=== PATIENT | female | born 1950 | race Caucasian/White ===

== ENCOUNTER 2017-04-20 17:48 | Emergency (ER) | payer BC ==
[2017-04-20 18:06] VITALS: BP 155/86
--- NOTE | 2017-04-20 18:12 | UC ---
Respiratory Complaint HPI - HPI Summary HPI Summary: Pt presents with cough. She tells me that about 2 weeks ago she developed a dry cough. Over the last 4-5 days her cough has become productive and she has had sinus congestion/pain/pressure. She also reports trouble "getting a deep breath ". Has not tried anything OTC. Denies fever, chills, SOB, chest pain, abdominal pain, N/V/D/C - History of Current Complaint Chief Complaint: UCGeneralIllness Stated Complaint: COLD/COUGH Time Seen by Provider: 04/20/17 18:11 Hx Obtained From: Patient Onset/Duration: Gradual Onset Severity Initially: Mild Severity Currently: Moderate Character: Cough: Productive - Allergies/Home Medications Allergies/Adverse Reactions: Allergies Allergy/AdvReac Type Severity Reaction Status Date / Time Fentanyl AdvReac Intermediate GI upset, Verified 04/20/17 17:59 groggy PMH/Surg Hx/FS Hx/Imm Hx Previously Healthy: Yes - Surgical History Surgical History: Yes Surgery Procedure, Year, and Place: carpal tunnel BILATERAL WRISTS. dental implants. cataract removal x2 - Family History Known Family History: Positive: Unknown - Social History Occupation: Employed Full-time Lives: With Family Alcohol Use: None Substance Use Type: None Smoking Status (MU): Never Smoked Tobacco Review of Systems Constitutional: Negative Skin: Negative Eyes: Negative ENT: Nasal Discharge, Sinus Congestion, Sinus Pain/Tenderness Respiratory: Cough Cardiovascular: Negative Gastrointestinal: Negative Neurological: Negative Psychological: Negative All Other Systems Reviewed And Are Negative: Yes Physical Exam Triage Information Reviewed: Yes Appearance: Well-Appearing, Well-Nourished Vital Signs: Initial Vital Signs Temp 98.8 F 04/20/17 18:00 Pulse 90 04/20/17 18:00 Resp 20 04/20/17 18:00 BP 155/86 04/20/17 18:00 Pulse Ox 98 04/20/17 18:00 Vital Signs Reviewed: Yes Eyes: Positive: Conjunctiva Clear. Negative: Conjunctiva Inflamed, Discharge ENT: Positive: Hearing grossly normal, Pharynx normal, Nasal congestion, TMs normal, Sinus tenderness, Uvula midline. Negative: Pharyngeal erythema, TM bulging, TM dull, TM red, Tonsillar swelling, Tonsillar exudate, Muffled voice, Hoarse voice Neck: Positive: Supple, Nontender, No Lymphadenopathy Respiratory: Positive: Chest non-tender, Lungs clear, No respiratory distress, No accessory muscle use, Wheezing - Throughout. Negative: Crackles Cardiovascular: Positive: RRR, No Murmur, Pulses Normal Neurological: Positive: Alert Psychological: Positive: Age Appropriate Behavior Skin: Negative: rashes UC Diagnostic Evaluation - Laboratory O2 Sat by Pulse Oximetry: 98 Respiratory Course/Dx - Course Course Of Treatment: CXR: IMPRESSION: HYPERINFLATION, CONSISTENT WITH COPD. NO ACTIVE CARDIOPULMONARY DISEASE. Albuterol for cough/COPD exacerbation. Augmentin for sinusitis - Differential Dx/Diagnosis Differential Diagnosis/HQI/PQRI: Bronchitis, Exacerbation Of COPD, Sinusitis Provider Diagnoses: COPD exacerbation. Sinusitis Discharge - Discharge Plan Condition: Stable Disposition: HOME Prescriptions: Amoxicillin/Clavulanate TAB* [Augmentin TAB 875*] 875 mg PO BID #20 tab Patient Education Materials: Acute Bronchitis (ED), Sinusitis (ED) Referrals: Niraj Leija MD [Primary Care Provider] - Additional Instructions: If you develop a fever, SOB, chest pain, new or worsening symptoms - please call your PCP or go to the ED. Your blood pressure was high at todays visit. Please see your primary provider within 4 weeks for recheck and re-evaluation.
[2017-04-20] MEDS ORDERED: Albuterol/Ipratropium NEB.SOL* Albuterol 2.5 MG/Ipratropium 0.5 MG 3 ML INH ONE (18:16)
--- NOTE | 2017-04-20 18:49 | RAD ---
HISTORY: Cough, wheezing COMPARISONS: August 15, 2013 VIEWS: 4: Frontal dual-energy and lateral views of the chest. FINDINGS: CARDIOMEDIASTINAL SILHOUETTE: The cardiomediastinal silhouette is normal. ROSEY: The rosey are normal. PLEURA: The costophrenic angles are sharp. No pleural abnormalities are noted. LUNG PARENCHYMA: There is hyperinflation with flattening of the diaphragm and expansion of the AP diameter of the chest. ABDOMEN: The upper abdomen is clear. There is no subphrenic gas. BONES AND SOFT TISSUES: Degenerative changes are noted along the spine. OTHER: None. IMPRESSION: HYPERINFLATION, CONSISTENT WITH COPD. NO ACTIVE CARDIOPULMONARY DISEASE.
[2017-04-20] MEDS ORDERED: Albuterol HFA INHALER* 8 gm MDI INH ONE (18:54)
[2017-04-20] MEDS ORDERED: Azithromycin TAB* 250 MG PO ONE (18:55)
[2017-04-20] MEDS ORDERED: Amoxicillin/Clavulanate TAB* 875 MG PO ONE (18:57)
== END 2017-04-20 19:20 | disposition home or self-care (01) ==
LOC: UCEAST 17:48
DX: J44.1 Chronic obstructive pulmonary disease with (acute) exacerbation (principal); J32.9 Chronic sinusitis, unspecified
CPT/HCPCS: 71020; 99213; A9270-GY; G0463

== ENCOUNTER 2018-05-12 07:21 | Inpatient (IN) | payer BC ==
--- NOTE | 2018-05-08 13:44 | HP ---
AMENDED REPORT NOW INCLUDES DESIGNATED COSIGNER HISTORY AND PHYSICAL: DATE OF ADMISSION/SURGERY: 05/12/18 DATE OF OFFICE VISIT: 05/08/18 SURGEON: Maria Ines Ro MD * (DICTATED BY CORNELIA CRANE) PROCEDURE: Left total knee arthroplasty. CHIEF COMPLAINT: Left knee pain. HISTORY OF PRESENT ILLNESS: Ms. Diez is a 68-year-old female with end- stage osteoarthritis of the left knee. She has failed conservative treatment and elected to proceed with a left total knee arthroplasty. PAST MEDICAL HISTORY: Hypertension, TIA, and sleep apnea. PAST SURGICAL HISTORY: Bilateral carpal tunnel release, cataract removal, and tooth implants. CURRENT MEDICATIONS: Quinapril 10 mg daily. ALLERGIES: To FENTANYL. FAMILY HISTORY: Coronary artery disease, diabetes, and aneurysm. SOCIAL HISTORY: She is a 68-year-old female. She lives with her and mother. She does not smoke or use drugs or alcohol. REVIEW OF SYSTEMS: A complete 14-point review of systems was reviewed with the patient. It was all negative or noncontributory. She denies history of DVT, PE , hepatitis, HIV, or anesthesia problems. PHYSICAL EXAMINATION GENERAL: She is well developed, well nourished, in no acute distress. VITAL SIGNS: She stands 66 inches tall, weighs 207 pounds. Her blood pressure is 124/78 and her heart rate is 60. HEENT: Normocephalic, atraumatic. NECK: Supple. No palpable lymph nodes. PULMONARY: The lungs are clear to auscultation bilaterally. CARDIO: Regular rate and rhythm. Strong S1, S2. ABDOMEN: Soft, nontender, nondistended. MUSCULOSKELETAL: Left lower extremity: The skin is intact. There are no open wounds or abrasions. There is a moderate joint effusion. She has some tenderness over the medial and lateral joint line. Range of motion is 10 to 120 degrees of flexion. She has a 2+ dorsalis pedis pulse, intact sensation and her lower extremity muscle group strengths are intact at 5/5. NEUROLOGICAL: She is alert and oriented x3. ASSESSMENT AND PLAN: Ms. Diez is a 68-year-old female with end-stage osteoarthritis of the left knee. She has failed conservative treatment and elected to proceed with a left total knee arthroplasty. The surgery is scheduled for 05/12/[address] Ro discussed the risks and benefits of the surgery at today's visit and all of her questions were answered. She will follow up with Dr. Ro 2 weeks after the surgery. CORNELIA CRANE [id number]/[facility] #: [id number] EVY
[~2018-05-12 07:21] MED LIST: Acetaminophen IV 1GM/100ML * 1,000 MG/100 ML VIAL IVPB ONE; Buffered Lidocaine 0.9% SYRIN* 5 ML/SYR SYRINGE INTRADERM ONE; Dexamethasone IV* 4 MG/ML 1 ML (4 MG) IV SLOW PU ONE; Famotidine IV* 10 MG/ML 2 ML (20 mg) IV ONE; Gabapentin CAP(*) 300 MG PO ONE; Lactated Ringers 1000 ML Bag* 1,000 ML IV SCH; Tranexamic Acid 1,000 MG in NS 0.9% 50 ML* (outpatient use) IV SCH; celeCOXIB CAP* 200 MG PO ONE
--- OUTSIDE RECORDS SUMMARY | 2018-05-12 07:25 | XMS REPORT | Continuity of Care Document ---
:1950 External Reference #:[id number] Author Name TrentToan howell Care Team Providers Name Role Phone Niraj Leija MD Primary Care Physician Unavailable Payers Type Date Identification Numbers Payment Provider Subscriber Effective: Policy Number: [id number] [employer] Samantha Diez 2012 PayID: [id number] [facility] [address] [place] [address] Advance Directives Description No Information Available Problems Date Description Provider Status Onset: 03/04/2017 Obstructive sleep apnea syndrome Sherrell Beavers DNP, RN, Active OPHTHALMIC TECH-BC Onset: 03/04/2017 Inadequate sleep hygiene Sherrell Beavers DNP, RN, Active OPHTHALMIC TECH-BC Onset: 11/14/2017 Localized, primary osteoarthritis Maria Ines Ro M.D. Active Family History Date Family Member(s) Problem(s) Comments General Diabetes General Heart Disease General Hypertension Father Coronary Artery Disease (CAD) Father Hypercholesterolemia Mother [place] age 42yrs Mother Coronary Artery Disease (CAD) Social History Type Date Description Comments Sex Unknown Marital Status Lives With Lives With Mother Occupation Retired Tobacco Use Start: Unknown Never Smoked Cigarettes Smoking Status Reviewed: 05/08/18 Never Smoked Cigarettes ETOH Use Denies alcohol use Tobacco Use Start: Unknown Patient has never smoked Recreational Drug Use Denies Drug Use Exercise Type/Frequency Exercises regularly Exercise Type/Frequency Walks 3 times a week Exercise Type/Frequency Does aerobics 5 times a week Allergies, Adverse Reactions, Alerts Date Description Reaction Status Severity Comments 11/14/2017 Fentanyl Active 12/06/2016 NKDA Inactive Medications Medication Date Status Form Strength Qnty SIG Indications Ordering Provider Quinapril HCL Active Tablets 10mg 1 by mouth Unknown 00 every day at bedtime Vitamin C Hx Chewtabs 125mg daily Unknown Adult Gummies 11/14/19 18 Vitamin B Hx Tablets 1 by mouth Unknown Complex 00 - every day 11/14/19 18 Vitamin D Hx daily Unknown 11/14/19 18 Fish Oil Hx daily Unknown 11/14/19 18 Curcumin 95 Hx prn Unknown 02/13/20 18 Turmeric Hx Unknown 05/07/19 19 Medications Administered in Office Medication Date Status Form Strength Qnty SIG Indications Ordering Provider Depomedrol Administered Injection Maria Ines 40MG 018 Chne Ro Depomedrol Administered Injection Maria Ines 40MG 018 Chen Ro Depomedrol Administered Injection Maria Ines 40MG 018 Chen Ro Immunizations CPT Code Status Date Vaccine Lot # [id number] Given 02/12/2016 Influenza Virus 3Yrs & Over Vital Signs Date Vital Result Comment 05/08/2018 11:50am Height 66 inches 5'6" Weight 207.00 lb Heart Rate 60 /min BP Systolic 124 mmHg BP Diastolic 78 mmHg Respiratory Rate 24 /min Body Temperature 97.6 F Pain Level 6 BMI (Body Mass Index) 33.4 kg/m2 02/13/2018 1:20pm Height 66 inches 5'6" Weight 202.00 lb BP Systolic 136 mmHg BP Diastolic 84 mmHg Body Temperature 97.8 F BMI (Body Mass Index) 32.6 kg/m2 12/05/2017 1:52pm Height 66 inches 5'6" Weight 204.00 lb BP Systolic 142 mmHg BP Diastolic 80 mmHg Body Temperature 98.0 F Pain Level 5 BMI (Body Mass Index) 32.9 kg/m2 11/24/2017 11:08am Height 66 inches 5'6" Weight 204.00 lb Heart Rate 76 /min BP Systolic Sitting 116 mmHg BP Diastolic Sitting 82 mmHg Respiratory Rate 14 /min O2 % BldC Oximetry 96 % BMI (Body Mass Index) 32.9 kg/m2 11/14/2017 1:31pm Height 66 inches 5'6" Weight 205.00 lb Heart Rate 92 /min BP Systolic 118 mmHg BP Diastolic 78 mmHg BMI (Body Mass Index) 33.1 kg/m2 03/04/2017 2:05pm Height 66 inches 5'6" Weight 208.50 lb with shoes Heart Rate 92 /min BP Systolic Sitting 138 mmHg Lue large cuff BP Diastolic Sitting 78 mmHg Lue large cuff Respiratory Rate 16 /min O2 % BldC Oximetry 97 % On Ra BMI (Body Mass Index) 33.6 kg/m2 12/06/2016 11:52am Height 66 inches 5'6" Weight 204.00 lb Heart Rate 88 /min BP Systolic Sitting 142 mmHg BP Diastolic Sitting 86 mmHg Respiratory Rate 20 /min O2 % BldC Oximetry 97 % room air BMI (Body Mass Index) 32.9 kg/m2 Neck Circumference in inches 14.25 Results Test Date Facility Test Result H/L Range Note Urinalysis Profile 04/30/2018 [facility] Urine Color Straw [facility] [place] [address] [place] [address] [phone] Urine Appearance Clear Urine Specific [place] 1.009 Low 1.010-1.030 Urine pH 7.0 N 5-9 Urine Urobilinogen Negative Negative Urine Ketones Negative Negative Urine Protein Negative Negative Urine Leukocytes Negative Negative Urine Blood Negative Negative Urine Nitrite Negative Negative Urine Bilirubin Negative Negative Urine Glucose Negative Negative Type & Screen 04/30/2018 [facility] Patient Blood Type O Positive [facility] [place] [address] [place] [address] [place] [address] [phone] Antibody Screen NEGATIVE Urine Culture And 04/30/2018 [facility] Urine Culture SEE RESULT [address] [place] [address] [phone] 1 SEE RESULT BELOW Name: SAMANTHA DIEZ : [address]: Maria Ines Ro MD Acct: [id number] Unit: [id number] AGE: 68 Location: PAT Re04/30/18 SEX: F Status: REG REF SPEC: [id number] ARSLAN: 04/30/18-1440 [facility] DR: Maria Ines Ro MD REQ: [id number] RECD: 04/30/18 STATUS: COMP _ SOURCE: URINE SPDESC: ORDERED: Urine Culture QUERIES: Urine Source: Clean Catch Procedure Result Reported Site Urine Culture Final 05/02/18- 0803 ML No Growth (<1,000 CFU/mL) * ML - Main Lab . END OF REPORT DEPARTMENT OF PATHOLOGY, [address] [place] [address] Emile Aguilar M.D. Director [facility] # [id number] Procedures Date Code Description Status 02/13/2018 Inject/Drain Joint/Bursa Major W/O US Completed 11/14/2017 Inject/Drain Joint/Bursa Major W/O US Completed 12/11/2016 05353 Sleep Study Unattended,HRT Rate,Oxygen Sat,Resp Completed Effort/Airflow 09/19/2011 80833 Rad Exam; Knee Comp Completed 09/19/2011 67990 Xray Knee 3 Views Completed Encounters Type Date Location Provider Dx Diagnosis Office Visit 02/13/2018 Orthopedic Maria Ines Ro, M25.561 Pain in right 1:15p [facility] M.D. knee M25.562 Pain in left knee M25.461 Effusion, right knee M25.462 Effusion, left knee M17.0 Bilateral primary osteoarthritis of knee Office Visit 12/05/2017 1:45p [facility] Services Maria Ines Ro, M25.561 Pain in right [facility] M.D. knee M25.562 Pain in left knee M25.461 Effusion, right knee M25.462 Effusion, left knee M17.0 Bilateral primary osteoarthritis of knee Office Visit 11/24/2017 Pulmonology And Sherrell G47.33 Obstructive sleep 11:15a [facility] Beavers RN, apnea (adult) [facility] OLIVERIO-BC (pediatric) Office Visit 11/14/2017 Orthopedic Maria Ines Ro, M25.561 Pain in right 1:30p [facility] M.D. knee [facility] M25.562 Pain in left knee M25.461 Effusion, right knee M25.462 Effusion, left knee M17.0 Bilateral primary osteoarthritis of knee Office Visit 03/04/2017 Pul[facility] And Sherrell G47.33 Obstructive sleep 2:00p [facility] Beavers RN, apnea (adult) [facility] OLIVERIO-BC (pediatric) Z72.821 Inadequate sleep hygiene R40.0 Somnolence Office Visit 12/06/2016 11:30a [facility] Sleep Lexis Mahmood, R06.83 Snoring [facility] R06.81 Apnea, not elsewhere classified R40.0 Somnolence R25.2 Cramp and spasm R51 Headache R12 Heartburn R41.840 Attention and concentration deficit E66.09 Other obesity due to excess calories Office Visit 08/16/2013 4:09p [facility] Graciela 401.9 Hypertension Assoc,pc Rooth, DO [facility] 784.0 Headache 780.4 Dizziness & Giddiness 530.81 Esophageal Reflux Office Visit 09/19/2011 2:30p Orthopedic Nacho Alcantara, 715.96 Osteoarthrosis [facility] Localized Lower Leg Plan of Treatment Future Appointment(s):05/25/2018 1:30 pm - Maria Ines Ro M.D. at [facility]05/12/2018 1:30 pm - CORNELIA Sandoval at [facility]05/12/2018 1:30 pm - HAKEEM Gomez at [facility]05/12/2018 1:30 pm - Maria Ines Ro M.D. at [facility]11/24/2018 1:30 pm - Sherrell Beavers DNP, RN, OPHTHALMIC TECH-BC at [facility]
--- OUTSIDE RECORDS SUMMARY | 2018-05-12 07:26 | XMS REPORT | Continuity of Care Document ---
:1950 External Reference #:[id number] Author Name Niraj Leija MD Address [address] [place] [address] Care Team Providers Name Role Phone Niraj Leija MD FACP Primary Care Physician Unavailable Payers Type Date Identification Numbers Payment Provider Subscriber Effective: Policy Number: [id number] [facility] CN Samantha Hidalgoirma 2012 Group Number: [id number] [address] [address] [facility] [place] [address] PayID: [id number] Expires: 2009 PayID: [id number] [place] Samantha Hidalgoirma [address] [place] [address] Advance Directives Description No Information Available Problems Date Description Provider Status Onset: 02/13/2009 Essential hypertension Niraj Leija MD Active Onset: 02/13/2009 Obesity Niraj Leija MD Active Onset: 02/13/2009 Localized, primary osteoarthritis Niraj Leija MD Active Onset: 03/01/2009 Mixed hyperlipidemia Niraj Leija MD Active Onset: 02/13/2015 Degenerative joint disease involving Niraj Leija MD Active multiple joints Onset: 02/13/2015 Vitamin D deficiency Niraj Leija MD Active Family History Date Family Member(s) Problem(s) Comments General Congestive Heart Failure (CHF) GM at 62 and uncle at 70 General Diabetes Mellitus I Sister and nephew at age 7 Onset: (2011) Father SC S/P stent (age 85 Years) Father Hypercholesterolemia Onset: Father Varicose veins (02/2009) (age 81 Years) Onset: (age 40 Mother Heart Disease Smoker in past, CABG Years) at 40 Mother Hypertension Number of Siblings Siblings: 11 10 alive 8 brothers and 2 sisters. Onset: (2004) First Brother Peripheral Vascular Disease S/P surgery, smoker (age 40 Years) (PVD) for life First Brother Ck : (age Second Brother due to Aneurysm Brain 21 Years) Second Brother Frances Onset: (2012) Third Brother Carotid artery aneurysm Incidental (age 48 Years) diagnosis, asymptomatic. 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 Allergies, Adverse Reactions, Alerts Date Description Reaction Status Severity Comments 02/13/2009 NKDA Active 01/09/2009 Fentanyl Nausea and Vomiting, [place] foggy Inactive Mild after dental surgery Medications Medication Date Status Form Strength Qnty SIG Indications Ordering Provider Quinapril 04/03 Active Tablets 10mg 90tab Take 1 Tablet By I10 Healy HCL s Mouth Every Day A Liss, For High Blood Pressure Cpap 12/11 Active G47.33 Ela, MD David Aspirin 08/[address] 81mg take 1 tablet by 435.9 Healy mouth daily to A [place], prevent blood clotting Vitamin D3 10/03 Active Capsules 2000Unit 1 po qd E55.9 He[place] Matias Leija MD Shingrix 07/03 Hx Suspension 50mcg 1unit one Z00.01 Healy Rec s intramuscular A [place], - dose now and 04/13 repeat 2nd dose /2017 after 2-6 months. Prevnar 13 07/03 Hx Suspension 1unit administer half Z00.01 Healy s a milliliters Matias Leija - intramuscularly 04/13 one time for inactivated vaccination to prevent pneumococcal infection Jublia 01/03 Hx Solution 10% Apply 1 110.1 application - topically to 02/12 affected area daily for fungal nail disease Omeprazole 08/[address] 20mg 30tab 1 by mouth every 530.81 Addy D /2014 s day as needed [place], - ANESTHESIA TECHNICIAN-C 02/12 789.06 Magnesium 08/10/2014 - Hx Tablets 300mg otc: 1 tab 530.81 Addy D Aspartate 02/12/2015 orally daily [place], for reflux ANESTHESIA TECHNICIAN-C prevention; decrease to every other day for diarrhea Amoxicillin/Po 02/18/2013 - Hx Tablets 875-125m 20t 1 take by 461.0 Healy A tassium 02/28/2013 g abs mouth tablet 2 MD Liss Clavulanate times per day for sinus irritation and congestion Clindamycin 02/06/2013 - Hx Capsules 300mg Take 1 capsule 461.0 Unknown HCL 02/13/2013 by mouth 4 times per day Doxycycline 12/31/2012 - Hx Caps DR 100mg 28c take 1 capsule 719.49 Healy A Hyclate 01/14/2013 Part aps by mouth 2 MD Liss times per day for 14 days Doxycycline 12/17/2012 - Hx Capsules 100mg 28c take 1 capsule 780.79 Healy A Hyclate 01/01/2013 aps by mouth 2 MD Liss times per day for 14 days 719.49 Omeprazole 11/11/2012 - Hx Tablets DR 20mg 1 by mouth 530.81 Healy A 12/11/2012 every day as MD Liss needed 789.06 Pravastatin 08/18/2012 - Hx Tablets 10mg 30tabs take 1 tablet by 272.2 Healy A Sodium 11/11/2012 mouth daily for MD Liss hyperlipidemia Omeprazole 08/06/2012 - Hx Capsules 20mg 30caps take 1 capsule by 530.81 Healy A 11/11/2012 DR mouth daily for MD Liss gastroesophageal reflux disease 789.06 Tums 08/06/2012 - Hx Chewtabs 500mg 2 chew and 530.81 Healy A 02/12/2015 swallow by mouth MD Liss tablets as needed 4 times a day Zostavax 08/06/2012 - Hx Solution [id number] 1u 1 injection Healy A 02/12/2015 Rec t/0.65M ni MD Liss L ts Accupril 07/24/2012 - Hx Tablets 10mg 90 Take 1 Tablet By I10 Healy A 04/03/2018 ta Mouth Every Day MD Liss bs For High Blood Pressure Melatonin 05/05/2012 - Hx Capsules 5mg 1 capsule by 780.52 Unknown 08/06/2012 mouth daily at bedtime with food as needed for trouble sleeping Omeprazole 03/09/2012 - Hx Capsules DR 20mg 30 take 1 capsule 786.2 Healy A 05/03/2012 ca by mouth 1/2 MD Liss ps hour before dinner Benadryl 01/04/2012 - Hx Capsules 25mg 1 by mouth every 780.52 Unknown 08/06/2012 night as needed for insomnia Trazodone HCL 12/23/2011 - Hx Tablets 50mg 30 1 tab by mouth 780.52 Healy A 12/23/2011 ta every night MD Liss bs Ecotrin Low 08/20/2010 - Hx Tablets DR 81mg 1 po qd 435.9 Healy A Strength 08/06/2012 MD Liss Zolpidem 08/20/2010 - Hx Tablets 5mg 15 1 po qhs prn 780.52 Healy A Tartrate 09/04/2010 ta MD Liss bs Pravastatin 09/01/2009 - Hx Tablets 40mg 30 take 1 tablet by 272.2 Healy A Sodium 08/05/2012 ta mouth daily for MD Liss bs hyperlipidemia Pravastatin 06/07/2009 - Hx Tablets 20mg 30 1 po qd qhs 272.2 Healy A Sodium 09/01/2009 ta MD Liss bs Acetaminophen 04/12/2009 - Hx Capsules 500mg 1-2 po tid prn 719.46 Healy A 02/12/2015 MD Liss 715.16 719.49 Quinapril HCL 03/13/2009 - Hx Tablets 10mg 30.0tabs Take 1 401.9 Healy A 07/24/2012 tablet by MD Liss mouth daily for high blood pressure Aspirin 03/01/2009 - Hx Tablets 325mg 1 po qd 435.9 Healy A 08/20/2010 MD Liss Vitamin D 02/24/2009 - Hx Tablets 1000Uni 1 po qd 268.9 Healy A 10/03/2010 t MD Liss Metoprolol 05/05/2006 - Hx Tablets ER 50mg 30tabs 1 po qd 401.9 Healy A Succinate ER 04/03/2009 24HR MD Liss Immunizations CPT Code Status Date Vaccine Lot # [id number] Given 02/27/2018 Influenza Virus Vaccine, Quadrivalent ([id number]), Derived From Cell 57381 Given 02/25/2017 Influenza Vaccine Quadrivalent Preser/Antibiotic [place] Use 7[address] Given 02/03/2016 Influenza Virus Split 3 Yrs And Above For Intramuscular Use 81149 Given 02/01/2014 Influenza Virus Split 3 Yrs And Above For Intramuscular Use 89971 Given 01/26/2013 Influenza Virus Split 3 Yrs And Above For Intramuscular Use 64227 Given 12/23/2011 Pneumococcal Vaccine 2Yrs Or Older PNEUMO [id number] 22992 Given 04/19/2010 Tdap-Tetanus, Diphtheria Toxoids/Acellular TDAP [id number] Pertussis Vaccine 7+ 26619 Given 03/05/2010 Influenza Virus Split 3 Yrs And Above For Intramuscular Use 16396 Given 02/03/2008 Influenza Virus Split 3 Yrs And Above For Intramuscular Use 19864 Given 12/21/2007 Tetanus Preservative Free For Use In Individuals 7 Yrs Or Older 89517 Refused 02/13/2015 Zoster Shingles Vaccine For Subcutaneous Injection Vital Signs Date Vital Result Comment 04/13/2018 2:31pm Heart Rate 90 /min BP Systolic 130 mmHg BP Diastolic 75 mmHg BMI (Body Mass Index) 33.6 kg/m2 Weight 205.00 lb Height 65.5 inches 5'5.50" 01/06/2018 8:55am Heart Rate 70 /min BP Systolic 130 mmHg BP Diastolic 80 mmHg Weight 205.00 lb 01/06/2018 12:50pm Weight 205.00 lb 07/03/2017 10:10am Body Temperature 98.8 F O2 % BldC Oximetry 98 % Heart Rate 90 /min BP Systolic 130 mmHg BP Diastolic 78 mmHg BMI (Body Mass Index) 33.8 kg/m2 Weight 206.00 lb Height 65.50 inches 5'5.50" 10/24/2016 1:21pm Heart Rate 76 /min BP Systolic 135 mmHg BP Diastolic 80 mmHg Weight 204.00 lb 04/25/2016 1:10pm Body Temperature 98.7 F O2 % BldC Oximetry 96 % Heart Rate 89 /min BP Systolic 130 mmHg BP Diastolic 80 mmHg BMI (Body Mass Index) 34.5 kg/m2 Weight 209.00 lb Height 65.25 inches 5'5.25" 08/28/2015 10:10am O2 % BldC Oximetry 97 % Heart Rate 95 /min BP Systolic 125 mmHg BP Diastolic 80 mmHg Weight 206.00 lb 02/13/2015 10:16am Body Temperature 98.4 F O2 % BldC Oximetry 96 % Heart Rate 82 /min BP Systolic 130 mmHg BP Diastolic 80 mmHg BMI (Body Mass Index) 33.1 kg/m2 Weight 205.00 lb Height 66 inches 5'6" 08/10/2014 10:01am Body Temperature 98.4 F O2 % BldC Oximetry 98 % Heart Rate 88 /min BP Systolic 138 mmHg BP Diastolic 78 mmHg BMI (Body Mass Index) 32.3 kg/m2 Weight 200.00 lb in office, clothed Height 66 inches 5'6" 05/20/2014 9:22am Body Temperature 97.6 F O2 % BldC Oximetry 97 % Heart Rate 78 /min BP Systolic 132 mmHg BP Diastolic 73 mmHg 05/18/2014 11:03am Body Temperature 98.8 F Heart Rate 114 /min BP Systolic 139 mmHg BP Diastolic 82 mmHg 02/14/2014 11:36am Body Temperature 98.2 F O2 % BldC Oximetry 97 % Heart Rate 84 /min BP Systolic 122 mmHg BP Diastolic 80 mmHg BMI (Body Mass Index) 33.2 kg/m2 Weight 206.00 lb in office, clothed, with shoes Height 66 inches 5'6" 11/09/2013 11:04am Body Temperature 98.4 F O2 % BldC Oximetry 97 % Heart Rate 82 /min BP Systolic 125 mmHg BP Diastolic 80 mmHg BMI (Body Mass Index) 33.2 kg/m2 Weight 206.00 lb in office,no clothes, with shoes Height 66 inches 5'6" 08/16/2013 2:25pm Body Temperature 98.3 F O2 % BldC Oximetry 97 % Ra, AT Rest Heart Rate 104 /min BP Systolic 130 mmHg BP Diastolic 75 mmHg BMI (Body Mass Index) 33.1 kg/m2 Weight 205.00 lb with shoes Height 66 inches 5'6" 02/18/2013 2:06pm Body Temperature 98.4 F O2 % BldC Oximetry 96 % Ra, AT Rest Heart Rate 89 /min BMI (Body Mass Index) 32.3 kg/m2 Weight 200.00 lb with shoes Height 66 inches 5'6" 12/29/2012 2:24pm Body Temperature 98.8 F Heart Rate 78 /min BP Systolic 130 mmHg BP Diastolic 80 mmHg Height 66 inches 5'6" 12/17/2012 12:48pm Body Temperature 98.7 F Heart Rate 80 /min BP Systolic 145 mmHg BP Diastolic 80 mmHg Height 66 inches 5'6" 12/01/2012 1:17pm Body Temperature 98.7 F Height 66 inches 5'6" 11/11/2012 10:24am Heart Rate 64 /min BP Systolic 125 mmHg BP Diastolic 70 mmHg BMI (Body Mass Index) 33.4 kg/m2 Weight 207.00 lb Height 66 inches 5'6" 08/06/2012 9:32am Heart Rate 74 /min BP Systolic 138 mmHg BP Diastolic 85 mmHg BMI (Body Mass Index) 34.2 kg/m2 Weight 212.00 lb with shoes Height 66 inches 5'6" 03/09/2012 2:03pm Body Temperature 98.2 F Height 66 inches 5'6" 12/23/2011 9:13am Heart Rate 70 /min BP Systolic 122 mmHg BP Diastolic 75 mmHg BMI (Body Mass Index) 32.8 kg/m2 Weight 203.00 lb Height 66 inches 5'6" 08/20/2010 11:56am Heart Rate 76 /min BP Systolic 115 mmHg BP Diastolic 80 mmHg BMI (Body Mass Index) 31.6 kg/m2 Weight 196.00 lb Height 66 inches 5'6" 05/03/2010 2:40pm Body Temperature 97.8 F Heart Rate 68 /min BP Systolic 125 mmHg BP Diastolic 80 mmHg Height 66 inches 5'6" 04/11/2010 11:50am Body Temperature 98.2 F O2 % BldC Oximetry 97 % Ra, AT Rest Heart Rate 86 /min BP Systolic 135 mmHg BP Diastolic 90 mmHg BMI (Body Mass Index) 30.8 kg/m2 Weight 191.00 lb Height 66 inches 5'6" 08/22/2009 10:52am O2 % BldC Oximetry 98 % Heart Rate 90 /min BP Systolic 130 mmHg BP Diastolic 90 mmHg BMI (Body Mass Index) 32.0 kg/m2 Weight 198.00 lb Height 66 inches 5'6" 05/22/2009 10:03am Heart Rate 76 /min BP Systolic 110 mmHg BP Diastolic 80 mmHg BMI (Body Mass Index) 32.6 kg/m2 Weight 202.00 lb Height 66 inches 5'6" 04/12/2009 2:06pm Heart Rate 64 /min BP Systolic 122 mmHg BP Diastolic 78 mmHg 03/13/2009 4:42pm Heart Rate 72 /min BP Systolic 140 mmHg Supine and standing BP Diastolic 85 mmHg Supine and standing 03/01/2009 4:37pm Heart Rate 64 /min BP Systolic 160 mmHg Supine and standing BP Diastolic 85 mmHg Supine and standing BMI (Body Mass Index) 33.9 kg/m2 Weight 210.00 lb with shoes Height 66 inches 5'6" 02/13/2009 1:05pm Body Temperature 98.0 F O2 % BldC Oximetry 95 % Heart Rate 75 /min BP Systolic 135 mmHg BP Diastolic 90 mmHg BMI (Body Mass Index) 33.1 kg/m2 Weight 205.00 lb Height 66 inches 5'6" Results Test Date Facility Test Result H/L Range Note Order 04/13/2018 [facility] [place] [address] [phone] CBC No Diff 04/08/2018 [facility] White Blood 5.0 10^3/uL N 3.5-10.8 [place] [address] Count [phone] Red Blood Count 4.26 10^6/uL N 4.00-5.40 Hemoglobin 12.2 g/dL N 12.0-16.0 Hematocrit 37 % N 35-47 Mean Corpuscular Volume 86 fL N 80-97 Mean Corpuscular Hemoglobin 29 pg N 27-31 Mean Corpuscular HGB Conc 33 g/dL N 31-36 Red Cell Distribution Width 14 % N 10.5-15 Platelet Count 304 10^3/uL N 150-450 Mean Platelet Volume 7.2 fL Low 7.4-10.4 Basic Metabolic Panel 04/08/2018 [facility] Sodium 140 mmol/L N 135-145 [place], [place] [id number] [phone] Potassium 4.0 mmol/L N 3.5-5.0 Chloride 103 mmol/L N 101-111 Co2 Carbon Dioxide 30 mmol/L N 22-32 Anion Gap 7 mmol/L N 2-11 Glucose 84 mg/dL N 70-100 Blood Urea Nitrogen 18 mg/dL N 6-24 Creatinine 0.77 mg/dL N 0.51-0.95 BUN/Creatinine Ratio 23.4 High 8-20 Calcium 9.2 mg/dL N 8.6-10.3 Egfr Non- 75.2 >60 Egfr 91.0 >60 1 Basic Metabolic Panel 12/30/2017 [facility] Sodium 140 mmol/L N 135-145 [place], [place] [id number] [phone] Potassium 3.9 mmol/L N 3.5-5.0 Chloride 105 mmol/L N 101-111 Co2 Carbon Dioxide 27 mmol/L N 22-32 Anion Gap 8 mmol/L N 2-11 Glucose 92 mg/dL N 70-100 Blood Urea Nitrogen 17 mg/dL N 6-24 Creatinine 0.81 mg/dL N 0.51-0.95 BUN/Creatinine Ratio 21.0 High 8-20 Calcium 8.8 mg/dL N 8.6-10.3 Egfr Non- 71.0 >60 Egfr 85.9 >60 2 Lipid Profile 12/30/2017 [facility] Triglycerides 99 mg/dL 3 (Trig/Chol/HDL) [place], [place] [id number] [phone] Cholesterol 216 mg/dL 4 HDL Cholesterol 49.8 mg/dL 5 LDL Cholesterol 146 mg/dL 6 Xray 10/06/2017 [facility] Mammography, Normal [address] Screening, [place] [address] [phone] Lipid Profile 06/27/2017 [facility] Triglycerides 149 mg/dL < 150 7 (Trig/Chol/[place] [address] ) [phone] Cholesterol 222 mg/dL High <200 8 HDL Cholesterol 43.9 mg/dL >40 9 LDL Cholesterol 148 mg/dL High <130 10 CBC No Diff 06/27/2017 [facility] White Blood 5.4 10^3/uL N 3.5-10.8 [place] [address] Count [phone] Red Blood Count 4.43 10^6/uL N 4.0-5.4 Hemoglobin 12.3 g/dL N 12.0-16.0 Hematocrit 37 % N 35-47 Mean Corpuscular Volume 84 fL N 80-97 Mean Corpuscular Hemoglobin 28 pg N 27-31 Mean Corpuscular HGB Conc 33 g/dL N 31-36 Red Cell Distribution Width 14 % N 10.5-15 Platelet Count 291 10^3/uL N 150-450 Mean Platelet Volume 7 um3 Low 7.4-10.4 Comp Metabolic Panel 06/27/2017 [facility] Sodium 140 mmol/L N 133-145 [place] [address] [phone] Potassium 4.0 mmol/L N 3.5-5.0 Chloride 104 mmol/L N 101-111 Co2 Carbon Dioxide 29 mmol/L N 22-32 Anion Gap 7 mmol/L N 2-11 Glucose 91 mg/dL N 70-100 Blood Urea Nitrogen 12 mg/dL N 6-24 Creatinine 0.82 mg/dL N 0.51-0.95 BUN/Creatinine Ratio 14.6 N 8-20 Calcium 9.2 mg/dL N 8.6-10.3 Total Protein 6.3 g/dL Low 6.4-8.9 Albumin 3.8 g/dL N 3.2-5.2 Globulin 2.5 g/dL N 2-4 Albumin/Globulin Ratio 1.5 N 1-3 Total Bilirubin 0.40 mg/dL N 0.2-1.0 Alkaline Phosphatase 72 U/L N 34-104 Alt 13 U/L N 7-52 Ast 14 U/L N 13-39 Egfr Non- 70.0 >60 Egfr 90.0 >60 11 Laboratory test 06/27/2017 [facility] Vitamin D 25.8 ng/mL N 20-50 12 [place] [address] Total 25(Oh) [phone] Basic Metabolic 10/19/2016 [facility] Sodium 140 mmol/L N 133- 145 Panel [place], [place] [address] [phone] Potassium 4.4 mmol/L N 3.5-5.0 Chloride 105 mmol/L N 101-111 Co2 Carbon Dioxide 27 mmol/L N 22-32 Anion Gap 8 mmol/L N 2-11 Glucose 91 mg/dL N 70-100 Blood Urea Nitrogen 11 mg/dL N 6-24 Creatinine 0.69 mg/dL N 0.51-0.95 BUN/Creatinine Ratio 15.9 N 8-20 Calcium 8.8 mg/dL N 8.6-10.3 Egfr Non- 85.7 N >60 Egfr 110.2 N >60 13 CBC No Diff 03/16/2016 [facility] White Blood 5.0 10^3/uL N 3.5-10.8 [place] [address] Count [phone] Red Blood Count 4.29 10^6/uL N 4.0-5.4 Hemoglobin 12.1 g/dL N 12.0-16.0 Hematocrit 36 % N 35-47 Mean Corpuscular Volume 83 fL N 80-97 Mean Corpuscular Hemoglobin 28 pg N 27-31 Mean Corpuscular HGB Conc 34 g/dL N 31-36 Red Cell Distribution Width 14 % N 10.5-15 Platelet Count 310 10^3/uL N 150-450 Mean Platelet Volume 8 um3 N 7.4-10.4 Basic Metabolic Panel 03/16/2016 [facility] Sodium 137 mmol/L N 133-145 [place] [address] [phone] Potassium 4.1 mmol/L N 3.5-5.0 Chloride 104 mmol/L N 101-111 Co2 Carbon Dioxide 26 mmol/L N 22-32 Anion Gap 7 mmol/L N 2-11 Glucose 92 mg/dL N 70-100 Blood Urea Nitrogen 14 mg/dL N 6-24 Creatinine 0.80 mg/dL N 0.51-0.95 BUN/Creatinine Ratio 17.5 N 8-20 Calcium 8.9 mg/dL N 8.6-10.3 Egfr Non- 72.4 N >60 Egfr 93.2 N >60 14 Laboratory test 03/16/2016 [facility] Vitamin D Total 32.6 ng/ mL N 30-50 [place] [address] 25(Oh) [phone] Lipid Profile 03/16/2016 [facility] Triglycerides 74 mg/dL N < 150 15 (Trig/Chol/HDL) [place] [address] [phone] Cholesterol 205 mg/dL High <200 16 HDL Cholesterol 46.2 mg/dL N >40 17 LDL Cholesterol 144 mg/dL High <130 18 Urinalysis Profile 03/16/2016 [facility] [place] [address] [phone] Urine Appearance Clear N Urine Specific Platter 1.013 N 1.010-1.030 Urine pH 7.0 N 5-9 Urine Urobilinogen Negative N Negative Urine Ketones Negative N Negative Urine Protein Negative N Negative Urine Leukocytes Negative N Negative Urine Blood Negative N Negative Urine Nitrite Negative N Negative Urine Bilirubin Negative N Negative Urine Glucose Negative N Negative Xray 12/15/2015 [facility] Mammography, Benign DAILY DR Screening, [place] [address] Bilateral [phone] Basic Metabolic 08/12/2015 [facility] Sodium 140 mmol/L N 133- 14 [place] [address] 5 [phone] Potassium 4.1 mmol/L N 3.5-5.0 Chloride 104 mmol/L N 101-111 Co2 Carbon Dioxide 29 mmol/L N 22-32 Anion Gap 7 mmol/L N 2-11 Glucose 88 mg/dL N 70-100 Blood Urea Nitrogen 13 mg/dL N 6-24 Creatinine 0.81 mg/dL N 0.51-0.95 BUN/Creatinine Ratio 16.0 N 8-20 Calcium 9.2 mg/dL N 8.6-10.3 Egfr Non- 71.4 N >60 Egfr 91.8 N >60 19 Xray 02/23/2015 [facility] Dexa Scan, Normal DAILY YEE Axial [place] [address] hips, pelvis, [phone] spine) CBC No Diff 02/18/2015 [facility] White Blood 5.3 10^3/uL N 4.8-10.8 [place] [address] Count [phone] Red Blood Count 4.40 10^6/uL N 4.0-5.4 Hemoglobin 12.5 g/dL N 12.0-16.0 Hematocrit 37 % N 35-47 Mean Corpuscular Volume 85 fL N 80-97 Mean Corpuscular Hemoglobin 28 pg N 27-31 Mean Corpuscular HGB Conc 33 g/dL N 31-36 Red Cell Distribution Width 14 % N 10.5-15 Platelet Count 321 10^3/uL N 150-450 Mean Platelet Volume 7 um3 Low 7.4-10.4 Comp Metabolic Panel 02/18/2015 [facility] Sodium 140 mmol/L N 133-145 [place] [address] [phone] Potassium 4.1 mmol/L N 3.5-5.0 Chloride 105 mmol/L N 101-111 Co2 Carbon Dioxide 29 mmol/L N 22-32 Anion Gap 6 mmol/L N 2-11 Glucose 88 mg/dL N 70-100 Blood Urea Nitrogen 11 mg/dL N 6-24 Creatinine 0.78 mg/dL N 0.51-0.95 BUN/Creatinine Ratio 14.1 N 8-20 Calcium 8.9 mg/dL N 8.6-10.3 Total Protein 6.5 g/dL N 6.4-8.9 Albumin 4.0 g/dL N 3.2-5.2 Globulin 2.5 g/dL N 2-4 Albumin/Globulin Ratio 1.6 N 1-3 Total Bilirubin 0.40 mg/dL N 0.2-1.0 Alkaline Phosphatase 68 U/L N 34-104 Alt 14 U/L N 7-52 Ast 14 U/L N 13-39 Egfr Non- 74.8 N >60 Egfr 96.2 N >60 20 Lipid Profile 02/18/2015 [facility] Triglycerides 98 mg/dL N 21 (Trig/Chol/HDL) [place], [place] [id number] [phone] Cholesterol 198 mg/dL N 22 HDL Cholesterol 45.8 mg/dL N 23 LDL Cholesterol 133 mg/dL N 24 Laboratory test 02/18/2015 [facility] Vitamin D 46.2 ng/mL N 30-50 25 [place] [address] Total 25(Oh) [phone] Urinalysis 02/18/2015 [facility] Urine [place] [address] [phone] Urine Appearance Clear N Urine Specific Platter 1.015 N 1.010-1.030 Urine pH 7.0 N 5-9 Urine Urobilinogen Negative N Negative Urine Ketones Negative N Negative Urine Protein Negative N Negative Urine Leukocytes Negative N Negative Urine Blood Negative N Negative Urine Nitrite Negative N Negative Urine Bilirubin Negative N Negative Urine Glucose Negative N Negative Xray 12/13/2014 [facility] Mammography, Normal [address] Screening, [place] [address] Bilateral [phone] Laboratory test 11/08/2014 [facility] Surgical Pathology SEE RESULT 26 [place] [address] BELOW [phone] Lipid Profile 08/16/2014 [facility] Triglycerides 145 mg/dL N 27, 28 (Trig/Chol/HDL) [place] [address] [phone] Cholesterol 224 mg/dL N 29 HDL Cholesterol 47.5 mg/dL N 30 LDL Cholesterol 148 mg/dL N 31 Basic Metabolic Panel 08/16/2014 [facility] Sodium 137 mmol/L N 133-145 [place] [address] [phone] Potassium 4.0 mmol/L N 3.5-5.0 Chloride 101 mmol/L N 101-111 Co2 Carbon Dioxide 30 mmol/L N 22-32 Anion Gap 6 mmol/L N 2-11 Glucose 87 mg/dL N 70-100 Blood Urea Nitrogen 17 mg/dL N 6-24 Creatinine 0.81 mg/dL N 0.51-0.95 BUN/Creatinine Ratio 21.0 High 8-20 Calcium 9.2 mg/dL N 8.6-10.3 Egfr Non- 71.6 N >60 Egfr 92.1 N >60 32 CBC No Diff 08/16/2014 [facility] White Blood 7.3 10^3/uL N 4.8-10.8 [place] [address] Count [phone] Red Blood Count 4.25 10^6/uL N 4.0-5.4 Hemoglobin 12.3 g/dL N 12.0-16.0 Hematocrit 37 % N 35-47 Mean Corpuscular Volume 86 fL N 80-97 Mean Corpuscular Hemoglobin 29 pg N 27-31 Mean Corpuscular HGB Conc 34 g/dL N 31-36 Red Cell Distribution Width 14 % N 10.5-15 Platelet Count 311 10^3/uL N 150-450 Mean Platelet Volume 7 um3 Low 7.4-10.4 Basic Metabolic Panel 02/19/2014 [facility] Sodium 139 mmol/L N 133-145 [place], [place] [address] [phone] Potassium 4.1 mmol/L N 3.7-5.6 Chloride 104 mmol/L N 101-111 Co2 Carbon Dioxide 29 mmol/L N 22-32 Anion Gap 6 mmol/L N 2-11 Glucose 88 mg/dL N 70-100 Blood Urea Nitrogen 13 mg/dL N 6-24 Creatinine 0.84 mg/dL N 0.51-0.95 BUN/Creatinine Ratio 15.5 N 8-20 Calcium 9.0 mg/dL N 8.6-10.3 Egfr Non- 68.9 N >60 Egfr 88.6 N >60 33 Lipid Profile 02/19/2014 [facility] Triglycerides 120 mg/dL N 34 (Trig/Chol/HDL) [place], [place] [id number] [phone] Cholesterol 210 mg/dL N 35 HDL Cholesterol 46.2 mg/dL N 36 LDL Cholesterol 140 mg/dL N 37 Vitamin D, 25 02/19/2014 [facility] 25-Hydroxy Vitamin <4.0 ng/ [place] [address] D2 [phone] 25-Hydroxy Vitamin D3 39 ng/mL N 25-Hydroxy Vitamin D Total 39 ng/mL N 38 Xray 12/08/2013 [facility] Mammography, Normal [address] Screening, [place] [address] Bilateral [phone] CBC Auto 08/15/2013 [facility] White Blood Count 6.8 10^3/uL 4.8-[place] [address] 8 [phone] Red Blood Count 4.34 10^6/uL 4.0-5.4 Hemoglobin 12.3 g/dL 12.0-16.0 Hematocrit 36 % 35-47 Mean Corpuscular Volume 83 fL 80-97 Mean Corpuscular Hemoglobin 28 pg 27-31 Mean Corpuscular HGB Conc 34 g/dL 31-36 Red Cell Distribution Width 14 % 10.5-15 Platelet Count 324 10^3/uL 150-450 Mean Platelet Volume 7 um3 Low 7.4-10.4 Abs Neutrophils 3.8 10^3/uL 1.5-7.7 Abs Lymphocytes 2.0 10^3/uL 1.0-4.8 Abs Monocytes 0.5 10^3/uL 0-0.8 Abs Eosinophils 0.4 10^3/uL 0-0.6 Abs Basophils 0.1 10^3/uL 0-0.2 Abs Nucleated RBC 0 10^3/uL Granulocyte % 56.1 % 38-83 Lymphocyte % 29.5 % 25-47 Monocyte % 7.2 % 1-9 Eosinophil % 5.9 % 0-6 Basophil % 1.3 % 0-2 Nucleated Red Blood Cells % 0 Inr/Protime 08/15/2013 [facility] Inr 0.93 0.85-1.06 [place] [address] [phone] Laboratory test 08/15/2013 [facility] D Dimer < 200 Less Than 39 [place] [address] Quantitative ng/mL 230 [phone] Comp Metabolic 08/15/2013 [facility] Sodium 140 133-145 [place] [address] mmol/L [phone] Potassium 4.0 mmol/L 3.7-5.6 Chloride 105 mmol/L 101-111 Co2 Carbon Dioxide 26 mmol/L 22-32 Anion Gap 9 mmol/L 2-11 Glucose 98 mg/dL 70-100 Blood Urea Nitrogen 13 mg/dL 6-24 Creatinine 0.82 mg/dL 0.51-0.95 BUN/Creatinine Ratio 15.9 8-20 Calcium 9.3 mg/dL 8.6-10.3 Total Protein 6.2 g/dL Low 6.4-8.9 Albumin 4.0 g/dL 3.2-5.2 Globulin 2.2 g/dL 2-4 Albumin/Globulin Ratio 1.8 1-3 Total Bilirubin 0.30 mg/dL 0.2-1.0 Alkaline Phosphatase 61 U/L 34-104 Alt 12 U/L 7-52 Ast 14 U/L 13-39 Egfr Non- 70.9 >60 Egfr 91.1 >60 40 Laboratory test 08/15/2013 [facility] Magnesium 2.0 mg/dL 1.9 -2.7 [place] [address] [phone] Creatine Kinase 79 U/L 10-223 CKMB 08/15/2013 [facility] CKMB ng/mL 1.1 ng/mL 0.6-6.3 [place] [address] [phone] Laboratory test 08/15/2013 [facility] Troponin I 0.00 ng/mL < 0.03 41 [place] [address] [phone] Comp Metabolic 08/02/2013 [facility] Sodium 138 mmol/L 133- 145 [place] [address] [phone] Potassium 3.9 mmol/L 3.7-5.6 Chloride 104 mmol/L 101-111 Co2 Carbon Dioxide 28 mmol/L 22-32 Anion Gap 6 mmol/L 2-11 Glucose 97 mg/dL 70-100 Blood Urea Nitrogen 13 mg/dL 6-24 Creatinine 0.81 mg/dL 0.51-0.95 BUN/Creatinine Ratio 16.0 8-20 Calcium 8.7 mg/dL 8.6-10.3 Total Protein 6.4 g/dL 6.4-8.9 Albumin 4.1 g/dL 3.2-5.2 Globulin 2.3 g/dL 2-4 Albumin/Globulin Ratio 1.8 1-3 Total Bilirubin 0.40 mg/dL 0.2-1.0 Alkaline Phosphatase 65 U/L 34-104 Alt 12 U/L 7-52 Ast 15 U/L 13-39 Egfr Non- 71.9 >60 Egfr 92.4 >60 42 Laboratory test 08/02/2013 [facility] Creatine Kinase 99 U/L 10-223 43 finding [place], [place] [id number] [phone] Lipid Profile 08/02/2013 [facility] Triglycerides 117 mg/dL 44 (Trig/Chol/HDL) [place] [address] [phone] Cholesterol 212 mg/dL 45 HDL Cholesterol 47.5 mg/dL 46 LDL Cholesterol 141 mg/dL 47 Hemoglobin/Hematacrit 01/12/2013 [facility] Hemoglobin 12.3 12.0-16.0 [place] [address] g/dL [phone] Hematocrit 36 % 35-47 Laboratory test 01/12/2013 [facility] C Reactive 1.2 mg/dL High [place] [address] Protein 0.5 [phone] Iron & Iron 01/12/2013 [facility] Iron 42 g/dL 28-170 [place] [address] [phone] Unsaturated Iron Binding 295 g/dL Total Iron Binding Capacity 337 g/dL 250-450 % Iron Saturation 12 % Low 15-55 Laboratory test finding 01/12/2013 [facility] Ferritin 21 ng/mL 11-307 [place] [address] [phone] Vitamin B12 676 pg/mL 180-914 Lyme Disease Serology Negative Negative 48 Xray 12/30/2012 [facility] Knee, Complete, Mild to [address] 4 Or More Views, [place] [address] Bi [phone] CBC No Diff 12/17/2012 [facility] White Blood 6.0 10^3/uL 4.8 -10[place] [address] Count [phone] Red Blood Count 3.99 10^6/uL Low 4.0-5.4 Hemoglobin 11.6 g/dL Low 12.0-16.0 Hematocrit 34 % Low 35-47 Mean Corpuscular Volume 85 fL 80-97 Mean Corpuscular Hemoglobin 29 pg 27-31 Mean Corpuscular HGB Conc 34 g/dL 31-36 Red Cell Distribution Width 14 % 10.5-15 Platelet Count 312 10^3/uL 150-450 Mean Platelet Volume 7 um3 Low 7.4-10.4 Comp Metabolic Panel 12/17/2012 [facility] Sodium 138 mmol/L 133-145 [place] [address] [phone] Potassium 3.6 mmol/L 3.5-5.0 Chloride 102 mmol/L 101-111 Co2 Carbon Dioxide 28.0 mmol/L 22-32 Anion Gap 8.0 mmol/L 2-11 Glucose 134 mg/dL High 70-100 Blood Urea Nitrogen 14 mg/dL 6-24 Creatinine 1.00 mg/dL 0.50-1.40 BUN/Creatinine Ratio 14.0 8-20 Calcium 8.9 mg/dL 8.1-9.9 Total Protein 5.8 g/dL Low 6.2-8.1 Albumin 3.5 g/dL 3.2-5.2 Globulin 2.3 g/dL 2-4 Albumin/Globulin Ratio 1.5 1-3 Total Bilirubin 0.6 mg/dL 0.4-1.5 Alkaline Phosphatase 74 U/L 30-110 Alt 16 U/L 14-54 Ast 20 U/L 12-42 Egfr Non- 56.6 >60 Egfr 72.7 >60 49 Laboratory test 12/17/2012 [facility] Uric Acid 5.4 mg/dL 2.6 -7.2 [place] [address] [phone] Tatum (Anti-Nuclear AB) Screen Negative Negative 50 Erythrocyte Sed Rate 24 mm/Hr 0-30 C Reactive Protein 0.9 mg/dL High Less than 0.5 Rheumatoid Factor <15 IU/mL <15 51 Cyclic Citrullinated Pept IgG <15.6 U 52 TSH (Thyroid Stimulating Horm) 1.08 miu/mL 0.34-5.60 Lyme Disease Serology Negative Negative 53 Xray 12/07/2012 [facility] Mammography, Normal [address] Screening, [place] [address] Bilateral [phone] Laboratory test 10/27/2012 [facility] Creatine Kinase 134 U/L 0-200 [place] [address] [phone] Laboratory test 09/08/2012 [facility] Creatine Kinase 202 U/L High 0-200 finding [place], [place] [address] [phone] Laboratory test 08/17/2012 [facility] Creatine Kinase 102 U/L 0-200 finding [place], [place] 7[address]6513 [phone] Erythrocyte Sed Rate 18 mm/Hr 0-30 Comp Metabolic Panel 08/06/2012 [facility] Sodium 138 mmol/L 133-145 [place], [place] [id number] [phone] Potassium 4.2 mmol/L 3.5-5.0 Chloride 104 mmol/L 101-111 Co2 Carbon Dioxide 29.0 mmol/L 22-32 Anion Gap 5.0 mmol/L 2-11 Glucose 94 mg/dL 70-100 Blood Urea Nitrogen 11 mg/dL 6-24 Creatinine 0.80 mg/dL 0.50-1.40 BUN/Creatinine Ratio 13.8 8-20 Calcium 8.9 mg/dL 8.1-9.9 Total Protein 6.0 g/dL Low 6.2-8.1 Albumin 3.8 g/dL 3.2-5.2 Globulin 2.2 g/dL 2-4 Albumin/Globulin Ratio 1.7 1-3 Total Bilirubin 0.5 mg/dL 0.4-1.5 Alkaline Phosphatase 69 U/L 30-110 Alt 25 U/L 14-54 Ast 34 U/L 12-42 Egfr Non- 73.2 >60 Egfr 94.1 >60 54 Laboratory test finding 08/06/2012 [facility] Lipase 28 U/L 22-51 55 [place] [address] [phone] Amylase 64 U/L 20-120 56 Iron & Iron Binding 08/06/2012 [facility] Iron 57 g/dL 28- 170 [place] [address] [phone] Unsaturated Iron Binding 298 g/dL Total Iron Binding Capacity 355 g/dL 250-450 % Iron Saturation 16 % 15-55 Laboratory test 08/06/2012 [facility] Ferritin 21 ng/mL 11- 307 57 [place] [address] [phone] CBC No Diff 08/06/2012 [facility] White Blood 5.4 4.8-10.8 [place] [address] Count 10^3/uL [phone] Red Blood Count 4.39 10^6/uL 4.0-5.4 Hemoglobin 12.4 g/dL 12.0-16.0 Hematocrit 37 % 35-47 Mean Corpuscular Volume 84 fL 80-97 Mean Corpuscular Hemoglobin 28 pg 27-31 Mean Corpuscular HGB Conc 34 g/dL 31-36 Red Cell Distribution Width 14 % 10.5-15 Platelet Count 277 10^3/uL 150-450 Mean Platelet Volume 8 um3 7.4-10.4 Laboratory test 08/06/2012 [facility] Creatine 942 U/L High 0- 200 58 [place] [address] Kinase [phone] LDL Cholesterol Direct 98 mg/dL Less Than 100 59 Vitamin D, 25 12/23/2011 [facility] 25-Hydroxy Vitamin <4.0 ng/ mL () [place] [address] D2 [phone] 25-Hydroxy Vitamin D3 46 ng/mL () 25-Hydroxy Vitamin D Total 46 ng/mL 25-80 60 Lipid Profile 12/23/2011 [facility] Triglyceride 73 mg/dL 40- 200 (Trig/Chol/HDL) [place], [place] [id number] [phone] Cholesterol 156 mg/dL Less Than 200 61 High Density Lipoprotein 40 mg/dL 40-60 62 Cholesterol/HDL Ratio 3.90 AVERAGE 1-4.44 Low Density Lipoprotein 101 mg/dL High Less Than 100 63 Comp Metabolic Panel 12/23/2011 [facility] Sodium 135 mmol/L 135-145 [place], [place] [address]79 [phone] Potassium 4.0 mmol/L 3.5-5.0 Chloride 103 mmol/L 101-111 Co2 (Carbon Dioxide) 26.0 mmol/L 22-32 Anion Gap 6.0 mmol/L 2-11 64 Glucose 97 mg/dL 70-100 BUN 14 mg/dL 6-24 Creatinine 0.8 mg/dL 0.50-1.40 One Over Creatinine 1.25 BUN/Creatinine Ratio 17.5 8-20 Calcium 8.7 mg/dL 8.1-9.9 Total Protein 6.2 GM/DL 6.2-8.1 Albumin 3.7 GM/DL 3.6-5.4 Globulin 2.5 GM/DL 2-4 Albumin/Globulin Ratio 1.5 1-3 Bilirubin Total 0.7 mg/dL 0.4-1.5 65 Alkaline Phosphatase 72 U/L 30-110 Alt (SGPT) 16 U/L 14-54 Ast (Sgot) 18 U/L 12-42 eGFR Non- 73.4 > 60 eGFR 94.4 > 60 66 CBC No Diff 12/23/2011 [facility] White Blood 4.3 CUMM Low 4.8 -10.8 [place] [address] Count [phone] Red Cell Count 4.29 CUMM 4.2-5.4 Hemoglobin 12.7 g/dL 12.0-16.0 Hematocrit 37 % 35-47 Mean Corpuscular Volume 86 um3 79-97 Mean Corpuscular Hemoglob 30 pg 27-31 Mean Corpuscular HGB Cone 35 g/dL 32-36 Redcell Distribution WDTH 14 % 10.5-15 Platelet Count 275 CUMM 150-450 Mean Platelet Volume 8.2 um3 7.4-10.4 Ua Routine 03/06/2011 [facility] Ua Specific Platter 1.[address] [place], [place] [address] [phone] Ua PH 7.0 Ua Color YELLOW Ua Appera CLEAR Ua WBC NEGATIVE Ua Protein NEGATIVE Ua Glucose NEGATIVE Ua Ketones NEGATIVE Ua Bilirubin NEGATIVE Ua Urobilinogen 0.2 Ua Nitrite NEGATIVE Ua Occult Blood NEGATIVE Vitamin D, 25 09/06/2010 [facility] 25-Hydroxy Vitamin <4.0 ng/ mL () [place] [address] D2 [phone] 25-Hydroxy Vitamin D3 27 ng/mL () 25-Hydroxy Vitamin D Total 27 ng/mL 25-80 67 Laboratory test finding 09/06/2010 [facility] Alt (SGPT) 17 U/L 14-54 [place] [address] [phone] LDL Direct 99 mg/dL Less Than 100 68 Basic Metabolic Panel 09/06/2010 [facility] Sodium 140 mmol/L 135-145 [place], [place] [id number] [phone] Potassium 4.2 mmol/L 3.5-5.0 Chloride 106 mmol/L 101-111 Co2 (Carbon Dioxide) 27.0 mmol/L 22-32 Anion Gap 7.0 mmol/L 2-11 69 Glucose 115 mg/dL High 70-100 BUN 10 mg/dL 6-24 Creatinine 0.90 mg/dL 0.50-1.40 One Over Creatinine 1.10 BUN/Creatinine Ratio 11.1 8-20 Calcium 8.9 mg/dL 8.1-9.9 eGFR Non- 64.3 > 60 eGFR 82.7 > 60 70 Hemogram 04/13/2010 [facility] White Blood Count 5.7 CUMM 4.8 -10.8 [place] [address] [phone] Red Cell Count 4.22 CUMM 4.2-5.4 Hemoglobin 12.3 g/dL 12.0-16.0 Hematocrit 36 % 35-47 Mean Corpuscular Volume 86 um3 79-97 Mean Corpuscular Hemoglob 29 pg 27-31 Mean Corpuscular HGB Cone 34 g/dL 32-36 Platelet Count 298 CUMM 150-450 Basic Metabolic 04/13/2010 [facility] Sodium 134 mmol/L Low 135-145 [place] [address] [phone] Potassium 4.3 mmol/L 3.5-5.0 Chloride 100 mmol/L Low 101-111 Co2 (Carbon Dioxide) 28.0 mmol/L 22-32 Anion Gap 6.0 mmol/L 2-11 71 Glucose 88 mg/dL 70-100 72 BUN 11 mg/dL 6-24 Creatinine 0.70 mg/dL 0.50-1.40 One Over Creatinine 1.40 BUN/Creatinine Ratio 15.7 8-20 Calcium 8.5 mg/dL 8.1-9.9 eGFR Non- 91.7 > 60 eGFR 110.9 > 60 73 Lipid Profile 04/13/2010 [facility] Triglyceride 48 mg/dL 40- 200 (Trig/Chol/HDL) [place] [address] [phone] Cholesterol 164 mg/dL Less Than 200 74 High Density Lipoprotein 48 mg/dL 40-60 75 Cholesterol/HDL Ratio 3.42 AVERAGE 1-4.44 Low Density Lipoprotein 106 mg/dL High Less Than 100 76 Laboratory test 04/13/2010 [facility] Alt (SGPT) 15 U/L 14- 54 [place] [address] [phone] Vitamin D, 25 04/13/2010 [facility] 25-Hydroxy <4.0 ng/mL () [place] [address] Vitamin D2 [phone] 25-Hydroxy Vitamin D3 35 ng/mL () 25-Hydroxy Vitamin D Total 35 ng/mL 25-80 77 Order 09/01/2009 [facility] 24 [place] [address] Monitor [phone] Laboratory test 08/23/2009 [facility] Alt (SGPT) 16 U/L 14- 54 [place] [address] [phone] CPK (Creatine Kinase) 95 U/L 0-170 LDL Direct 121 mg/dL High Less Than 100 78 Vitamin D, 25 08/23/2009 [facility] 25-Hydroxy Vitamin <4.0 ng/ mL () [place] [address] D2 [phone] 25-Hydroxy Vitamin D3 24 ng/mL () 25-Hydroxy Vitamin D Total 24 ng/mL Low 25-80 79 Surgical 06/20/2009 [facility] Surgical [address] [place] [address] Pathology <SEE NOTE> [phone] Order 06/20/2009 [facility] Colonoscopy 2hyperplastic [address] polyps [place] [id number] [phone] Xray 05/30/2009 [facility] Knee, Complete, Mild Ltknee DAILY YEE 4 [place] [address] Views, Bi [phone] Lipid Profile 05/25/2009 [facility] Triglyceride 97 mg/dL 40 - (Trig/Chol/[place] [address] 200 L) [phone] Cholesterol 219 mg/dL High Less Than 200 81 High Density Lipoprotein 41 mg/dL 40-60 82 Cholesterol/HDL Ratio 5.34 AVERAGE High 1-4.44 Low Density Lipoprotein 159 mg/dL High Less Than 100 83 Basic Metabolic Panel 05/25/2009 [facility] Sodium 139 mmol/L 135-145 [place], [place] 6507451 [phone] Potassium 4.8 mmol/L 3.5-5.0 Chloride 104 mmol/L 101-111 Co2 (Carbon Dioxide) 28.0 mmol/L 22-32 Anion Gap 7.0 mmol/L 2-11 84 Glucose 94 mg/dL 70-100 85 BUN 13 mg/dL 6-24 Creatinine 0.80 mg/dL 0.50-1.40 One Over Creatinine 1.20 BUN/Creatinine Ratio 16.3 8-20 Calcium 9.0 mg/dL 8.1-9.9 86 eGFR Non- 78.6 > 60 eGFR 95.1 > 60 87 Laboratory test 05/25/2009 [facility] Alt (SGPT) 16 U/L 14- 54 finding [place], [place] [address]1030 [phone] Xray 03/07/2009 [facility] Mra brain, Normal [address] story, [place] [address] posterior [phone] circulation with contrast Order 03/01/2009 [facility] 24 [place] [address] Monitor [phone] Laboratory test 02/28/2009 [facility] Troponin-I (TnI) 0.01 NG/ ML 88 [place] [address] [phone] P33S 02/28/2009 [facility] Sodium 136 mmol/L 135-145 [place] [address] [phone] Potassium 3.9 mmol/L 3.5-5.0 Chloride 105 mmol/L 101-111 Co2 (Carbon Dioxide) 27.0 mmol/L 22-32 Anion Gap 4.0 mmol/L 2-11 89 Glucose 108 mg/dL High 70-100 90 BUN 13 mg/dL 6-24 Creatinine 0.71 mg/dL 0.50-1.40 One Over Creatinine 1.40 BUN/Creatinine Ratio 18.3 8-20 Calcium 8.6 mg/dL 8.1-9.9 91 Total Protein 6.4 GM/DL 6.2-8.1 Albumin 3.8 GM/DL 3.6-5.4 Globulin 2.6 GM/DL 2-4 Albumin/Globulin Ratio 1.5 1-3 Bilirubin Total 0.4 mg/dL 0.4-1.5 92 Alkaline Phosphatase 74 U/L 30-110 Alt (SGPT) 20 U/L 14-54 Ast (Sgot) 23 U/L 12-42 eGFR Non- 90.5 > 60 eGFR 109.5 > 60 93 CBC With 02/28/2009 [facility] White Blood 4.6 CUMM Low 4.8- 10.8 [place] [address] Count Stat [phone] Red Cell Count 4.48 CUMM 4.2-5.4 Hemoglobin 12.6 g/dL 12.0-16.0 Hematocrit 37 % 35-47 Mean Corpuscular Volume 84 um3 79-97 Mean Corpuscular Hemoglob 28 pg 27-31 Mean Corpuscular HGB Cone 34 g/dL 32-36 Redcell Distribution WDTH 14 % 10.5-15 Platelet Count 358 CUMM 150-450 Mean Platelet Volume 6.6 um3 Low 7.4-10.4 Gran % 62.4 % 38-83 Lymph % 27.8 % 25-47 Mononuclear % 5.9 % 1-9 Eosinophil % 3.2 % 0-6 Basophil % 0.7 % 0-2 Abs Lymphs 1.3 1.0-4.8 Abs Mononuclear 0.3 0-0.8 Absolute Neutrophil Count 2.9 1.5-7.7 Abs Eosinophils 0.1 0-0.6 Abs Basophils 0 0-0.2 Order 02/13/2009 [facility] [place] [address] [phone] Hemogram 02/13/2009 [facility] White Blood 4.7 CUMM Low 4.8- 10.8 [place] [address] Count [phone] Red Cell Count 4.58 CUMM 4.2-5.4 Hemoglobin 13.1 g/dL 12.0-16.0 Hematocrit 39 % 35-47 Mean Corpuscular Volume 85 um3 79-97 Mean Corpuscular Hemoglob 29 pg 27-31 Mean Corpuscular HGB Cone 34 g/dL 32-36 Platelet Count 309 CUMM 150-450 Comp Metabolic Panel 02/13/2009 [facility] Sodium 139 mmol/L 135-145 [place] [address] [phone] Potassium 3.8 mmol/L 3.5-5.0 Chloride 99 mmol/L Low 101-111 Co2 (Carbon Dioxide) 27.0 mmol/L 22-32 Anion Gap 13.0 mmol/L High 2-11 94 Glucose 86 mg/dL 70-100 95 BUN 11 mg/dL 6-24 Creatinine 0.80 mg/dL 0.50-1.40 One Over Creatinine 1.20 BUN/Creatinine Ratio 13.8 8-20 Calcium 9.4 mg/dL 8.1-9.9 96 Total Protein 6.2 GM/DL 6.2-8.1 Albumin 3.7 GM/DL 3.6-5.4 Globulin 2.5 GM/DL 2-4 Albumin/Globulin Ratio 1.5 1-3 Bilirubin Total 0.6 mg/dL 0.4-1.5 97 Alkaline Phosphatase 75 U/L 30-110 Alt (SGPT) 18 U/L 14-54 Ast (Sgot) 21 U/L 12-42 eGFR Non- 78.9 > 60 eGFR 95.4 > 60 98 Lipid Profile 02/13/2009 [facility] Triglyceride 137 mg/dL 40 -200 (Trig/Chol/HDL) [place], [place] [id number] [phone] Cholesterol 228 mg/dL High Less Than 200 99 High Density Lipoprotein 42 mg/dL 40-60 100 Cholesterol/HDL Ratio 5.43 AVERAGE High 1-4.44 Low Density Lipoprotein 159 mg/dL High Less Than 130 101 Laboratory test 02/13/2009 [facility] TSH 1.42 MIU/ML 0.34- 5.60 [place] [address] [phone] Vitamin D 25 02/13/2009 [facility] 25-Hydroxy <4.0 ng/mL () [place] [address] Vitamin D2 [phone] 25-Hydroxy Vitamin D3 29 ng/mL () 25-Hydroxy Vitamin D Total 29 ng/mL 25-80 102 Iron & Iron Binding 02/13/2009 [facility] Iron Total 84 g/dL 28-170 [place] [address] [phone] Unsaturated Iron Binding 295 g/dL Total Iron Binding Capacity 379 g/dL 250-450 % Iron Saturation 22 % 15-55 Laboratory test 02/13/2009 [facility] Ferritin 16 NG/ML 11.0- 307 [place] [address] [phone] Vitamin B12 > 1500 pg/mL High 180-914 Lipid Panel 09/14/2007 [facility] Cholesterol Total 248 High 120-200 Cholesterol/HDL Ratio 4.6 High Density Lipoprotein 54.0 40-60 LDL Low Density Lipoprotein 172 High 0-99 Triglycerides 85 0-149 BMP W/Egfr 09/14/2007 [facility] Sodium 141 136-145 Potassium 4.3 3.6-5.2 Chloride 103 100-108 Carbon Dioxide 29 21-32 Calcium 8.8 8.5-10.5 Glucose 78 70-110 BUN + Creatinine W/O 09/14/2007 [facility] BUN - Urea Nitrogen 17 7-21 Egfr Creatinine W/O Egfr 1.0 0.6-1.3 CBC No Diff 06/08/2007 [facility] Hematocrit 35.4 Low 36.0-48.0 Hemoglobin 11.5 Low 13.5-16.0 Platelet Count 359 130-450 RBC Red Blood Count 4.49 4.20-5.40 RDW 12.1 11.0-15.0 White Blood Count 4.7 Low 4.8-10.8 MCH (Corpuscular Hemoglobin) 25.7 Low 27.0-34.0 MCHC (Corpuscular Hemog Conc) 32.7 30.0-36.5 MPV 7.5 6.0-12.0 MCV (Corpuscular Volume) 78.8 Low 80.0-100.0 BMP W/Egfr 06/08/2007 [facility] Sodium 139 136-145 Potassium 4.1 3.6-5.2 Chloride 102 100-108 Carbon Dioxide 27 21-32 Calcium 8.8 8.5-10.5 Glucose 101 70-110 BUN + Creatinine W/O 06/08/2007 [facility] BUN - Urea Nitrogen 15 7-21 Egfr Creatinine W/O Egfr 0.7 0.6-1.3 Laboratory test 06/08/2007 [facility] Troponin I <0.04 0.00-0.05 finding D-Dimer Sensitive 0.7 0-1.0 CBC No Diff 04/10/2007 [facility] Hematocrit 38.3 36.0 -48.0 Hemoglobin 12.3 Low 13.5-16.0 Platelet Count 294 130-450 RBC Red Blood Count 4.69 4.20-5.40 RDW 12.5 11.0-15.0 White Blood Count 4.3 Low 4.8-10.8 MCH (Corpuscular Hemoglobin) 26.3 Low 27.0-34.0 MCHC (Corpuscular Hemog Conc) 32.1 30.0-36.5 MPV 7.8 6.0-12.0 MCV (Corpuscular Volume) 81.8 80.0-100.0 Retic Count 04/10/2007 [facility] Reticulocyte Count 1.2 0.5-1.5 Vitamin B12 And 04/10/2007 [facility] Vitamin B12 713 160-800 Folate Serum Folate Serum 16.1 3-17 Iron And Tibc Serum 04/10/2007 [facility] Iron 78 35- 150 Iron Binding Capacity (Tibc) 332 250-450 CBC No Diff 03/31/2007 [facility] Hematocrit 35.6 Low 36.0-48.0 Hemoglobin 11.6 Low 13.5-16.0 Platelet Count 321 130-450 RBC Red Blood Count 4.34 4.20-5.40 RDW 12.4 11.0-15.0 White Blood Count 5.1 4.8-10.8 MCH (Corpuscular Hemoglobin) 26.6 Low 27.0-34.0 MCHC (Corpuscular Hemog Conc) 32.4 30.0-36.5 MPV 7.5 6.0-12.0 MCV (Corpuscular Volume) 82.2 80.0-100.0 BUN + Creatinine W/O 03/31/2007 [facility] BUN - Urea Nitrogen 11 7-21 Egfr Creatinine W/O Egfr 0.9 0.6-1.3 BMP W/Egfr 03/31/2007 [facility] Sodium 138 136-145 Potassium 3.9 3.6-5.2 Chloride 101 100-108 Carbon Dioxide 28 21-32 Calcium 7.9 Low 8.5-10.5 Glucose 82 70-110 1 Because ethnic data is not always readily available, this report includes an eGFR for both -Americans and non- Americans. The National Kidney Disease Education Program (NKDEP) does not endorse the use of the MDRD equation for patients that are not between the ages of 18 and 70, are , have extremes of body size, muscle mass, or nutritional status, or are non- or non-. According to the National Kidney Foundation, irrespective of diagnosis, the stage of the disease is based on the level of kidney function: Stage Description GFR(mL/min/1.73 m(2)) 1 Kidney damage with normal or decreased GFR 90 2 Kidney damage with mild decrease in GFR 60-89 3 Moderate decrease in GFR 30-59 4 Severe decrease in GFR 15-29 5 Kidney failure <15 (or dialysis) 2 Because ethnic data is not always readily available, this report includes an eGFR for both -Americans and non- Americans. The National Kidney Disease Education Program (NKDEP) does not endorse the use of the MDRD equation for patients that are not between the ages of 18 and 70, are , have extremes of body size, muscle mass, or nutritional status, or are non- or non-. According to the National Kidney Foundation, irrespective of diagnosis, the stage of the disease is based on the level of kidney function: Stage Description GFR(mL/min/1.73 m(2)) 1 Kidney damage with normal or decreased GFR 90 2 Kidney damage with mild decrease in GFR 60-89 3 Moderate decrease in GFR 30-59 4 Severe decrease in GFR 15-29 5 Kidney failure <15 (or dialysis) 3 Desirable: <150 Borderline High: 150-199 High: 200-499 Very High: >500 4 Desirable: <200 Borderline High: 200-239 High: >239 5 Low: <40 Desirable: 40-60 High: >60 6 Desirable: <100 Near Optimal: 100-129 Borderline High: 130-159 High: 160-189 Very High: >189 7 Desirable: <150 Borderline High: 150-199 High: 200-499 Very High: >500 8 Desirable: <200 Borderline High: 200-239 High: >239 9 Low: <40 Desirable: 40-60 High: >60 10 Desirable: <100 Near Optimal: 100-129 Borderline High: 130-159 High: 160-189 Very High: >189 11 Because ethnic data is not always readily available, this report includes an eGFR for both -Americans and non- Americans. The National Kidney Disease Education Program (NKDEP) does not endorse the use of the MDRD equation for patients that are not between the ages of 18 and 70, are , have extremes of body size, muscle mass, or nutritional status, or are non- or non-. According to the National Kidney Foundation, irrespective of diagnosis, the stage of the disease is based on the level of kidney function: Stage Description GFR(mL/min/1.73 m(2)) 1 Kidney damage with normal or decreased GFR 90 2 Kidney damage with mild decrease in GFR 60-89 3 Moderate decrease in GFR 30-59 4 Severe decrease in GFR 15-29 5 Kidney failure <15 (or dialysis) 12 FASTING 13 Because ethnic data is not always readily available, this report includes an eGFR for both -Americans and non- Americans. The National Kidney Disease Education Program (NKDEP) does not endorse the use of the MDRD equation for patients that are not between the ages of 18 and 70, are , have extremes of body size, muscle mass, or nutritional status, or are non- or non-. According to the National Kidney Foundation, irrespective of diagnosis, the stage of the disease is based on the level of kidney function: Stage Description GFR(mL/min/1.73 m(2)) 1 Kidney damage with normal or decreased GFR 90 2 Kidney damage with mild decrease in GFR 60-89 3 Moderate decrease in GFR 30-59 4 Severe decrease in GFR 15-29 5 Kidney failure <15 (or dialysis) 14 Because ethnic data is not always readily available, this report includes an eGFR for both -Americans and non- Americans. The National Kidney Disease Education Program (NKDEP) does not endorse the use of the MDRD equation for patients that are not between the ages of 18 and 70, are , have extremes of body size, muscle mass, or nutritional status, or are non- or non-. According to the National [facility], irrespective of diagnosis, the stage of the disease is based on the level of kidney function: Stage Description GFR(mL/min/1.73 m(2)) 1 Kidney damage with normal or decreased GFR 90 2 Kidney damage with mild decrease in GFR 60-89 3 Moderate decrease in GFR 30-59 4 Severe decrease in GFR 15-29 5 Kidney failure <15 (or dialysis) 15 Desirable <150 Borderline high 150-199 High 200-499 Very High >500 16 Desirable <200 Borderline high 200-239 High >239 17 Low <40 Desirable: 40-60 High: >60 18 Desirable: <100 mg/dL Near Optimal: 100-129 mg/dL Borderline High: 130-159 mg/dL High: 160-189 mg/dL Very High: >189 mg/dL 19 Because ethnic data is not always readily available, this report includes an eGFR for both -Americans and non- Americans. The National Kidney Disease Education Program (NKDEP) does not endorse the use of the MDRD equation for patients that are not between the ages of 18 and 70, are , have extremes of body size, muscle mass, or nutritional status, or are non- or non-. According to the National Kidney Foundation, irrespective of diagnosis, the stage of the disease is based on the level of kidney function: Stage Description GFR(mL/min/1.73 m(2)) 1 Kidney damage with normal or decreased GFR 90 2 Kidney damage with mild decrease in GFR 60-89 3 Moderate decrease in GFR 30-59 4 Severe decrease in GFR 15-29 5 Kidney failure <15 (or dialysis) 20 Because ethnic data is not always readily available, this report includes an eGFR for both -Americans and non- Americans. The National Kidney Disease Education Program (NKDEP) does not endorse the use of the MDRD equation for patients that are not between the ages of 18 and 70, are , have extremes of body size, muscle mass, or nutritional status, or are non- or non-. According to the National Kidney Foundation, irrespective of diagnosis, the stage of the disease is based on the level of kidney function: Stage Description GFR(mL/min/1.73 m(2)) 1 Kidney damage with normal or decreased GFR 90 2 Kidney damage with mild decrease in GFR 60-89 3 Moderate decrease in GFR 30-59 4 Severe decrease in GFR 15-29 5 Kidney failure <15 (or dialysis) 21 Desirable <150 Borderline high 150-199 High 200-499 Very High >500 22 Desirable <200 Borderline high 200-239 High >239 23 Low <40 Desirable: 40-60 High: >60 24 Desirable: <100 mg/dL Near Optimal: 100-129 mg/dL Borderline High: 130-159 mg/dL High: 160-189 mg/dL Very High: >189 mg/dL 25 FASTING 26 SEE RESULT BELOW Name: SAMANTHA DIEZ : [address]: Isac Ibanez MD Acct: [id number] Unit: [id number] AGE: 64 Location: ENDOC Re11/08/14 SEX: F Status: REG REF SPEC: [id number] ARSLAN: 11/08/14- SUBM DR: Isac Ibanez MD REQ: [id number] RECD: 11/08/14-1236 STATUS: PAMELA HUTCHINSON DR: Niraj eLija MD _ ORDERED: LEVEL IV FINAL DIAGNOSIS Colon, 10 cm, biopsy: -- Hyperplastic polyp. CLINICAL HISTORY No further information provided POST-OPERATIVE DIAGNOSIS Screening colonoscopy to cecum - polyp at 10 cm. biopsied; 5-10 years GROSS DESCRIPTION The specimen is received in formalin labeled, Biopsy Colon Polyp at 10 cm, and consists of a 0.5 x 0.3 x 0.2 cm hinds-pink irregular soft tissue fragment, which is submitted entirely in one cassette. Signed (signature on file) Emile Aguilar MD [id number] END OF REPORT * ML=Testing performed at Main Lab DEPARTMENT OF PATHOLOGY, [address] [place] [address] Emile Aguilar M.D. Director [facility] # [id number] 27 PT IS NOT FASTING 28 Desirable <150 Borderline high 150-199 High 200-499 Very High >500 29 Desirable <200 Borderline high 200-239 High >239 30 Low <40 Desirable: 40-60 High: >60 31 Desirable: <100 mg/dL Near Optimal: 100-129 mg/dL Borderline High: 130-159 mg/dL High: 160-189 mg/dL Very High: >189 mg/dL 32 Because ethnic data is not always readily available, this report includes an eGFR for both -Americans and non- Americans. The National Kidney Disease Education Program (NKDEP) does not endorse the use of the MDRD equation for patients that are not between the ages of 18 and 70, are , have extremes of body size, muscle mass, or nutritional status, or are non- or non-. According to the National Kidney Foundation, irrespective of diagnosis, the stage of the disease is based on the level of kidney function: Stage Description GFR(mL/min/1.73 m(2)) 1 Kidney damage with normal or decreased GFR 90 2 Kidney damage with mild decrease in GFR 60-89 3 Moderate decrease in GFR 30-59 4 Severe decrease in GFR 15-29 5 Kidney failure <15 (or dialysis) 33 Because ethnic data is not always readily available, this report includes an eGFR for both -Americans and non- Americans. The National Kidney Disease Education Program (NKDEP) does not endorse the use of the MDRD equation for patients that are not between the ages of 18 and 70, are , have extremes of body size, muscle mass, or nutritional status, or are non- or non-. According to the National Kidney Foundation, irrespective of diagnosis, the stage of the disease is based on the level of kidney function: Stage Description GFR(mL/min/1.73 m(2)) 1 Kidney damage with normal or decreased GFR 90 2 Kidney damage with mild decrease in GFR 60-89 3 Moderate decrease in GFR 30-59 4 Severe decrease in GFR 15-29 5 Kidney failure <15 (or dialysis) 34 Desirable <150 Borderline high 150-199 High 200-499 Very High >500 35 Desirable <200 Borderline high 200-239 High >239 36 Low <40 Desirable: 40-60 High: >60 37 Desirable <100 Near Optimal 100-129 Borderline high 130-159 High 160-189 Very High >189 38 REFERENCE VALUE 25-HYDROXY D TOTAL (D2+D3) Optimum levels in the healthy population are 20-50, patients with bone disease may benefit from higher levels within this range. Test Performed by: [facility] - [address] [address] Faucet Polisher: Arpan Encarnacion M.D. 39 Please note: The following may produce a false positive D Dimer test: - Rheumatoid factor greater than 60 IU/ml - Plasma hemoglobin greater than 0.05 gm/dl - Bilirubin greater than 50 mg/dl - Lipids greater than 1000 mg/dl - FDP greater than 20 ug/ml 40 Because ethnic data is not always readily available, this report includes an eGFR for both -Americans and non- Americans. The National Kidney Disease Education Program (NKDEP) does not endorse the use of the MDRD equation for patients that are not between the ages of 18 and 70, are , have extremes of body size, muscle mass, or nutritional status, or are non- or non-. According to the National Kidney Foundation, irrespective of diagnosis, the stage of the disease is based on the level of kidney function: Stage Description GFR(mL/min/1.73 m(2)) 1 Kidney damage with normal or decreased GFR 90 2 Kidney damage with mild decrease in GFR 60-89 3 Moderate decrease in GFR 30-59 4 Severe decrease in GFR 15-29 5 Kidney failure <15 (or dialysis) 41 Reference Range and Interpretation: TnI (ng/mL) Interpretation Less Than 0.03 ng/mL Not supportive of diagnosis of SC 0.03 - 0.50 ng/mL Indeterminate: suggest serial studies if clinically indicated. Greater than 0.5 ng/mL Consistent with diagnosis of SC 42 Because ethnic data is not always readily available, this report includes an eGFR for both -Americans and non- Americans. The National Kidney Disease Education Program (NKDEP) does not endorse the use of the MDRD equation for patients that are not between the ages of 18 and 70, are , have extremes of body size, muscle mass, or nutritional status, or are non- or non-. According to the National Kidney Foundation, irrespective of diagnosis, the stage of the disease is based on the level of kidney function: Stage Description GFR(mL/min/1.73 m(2)) 1 Kidney damage with normal or decreased GFR 90 2 Kidney damage with mild decrease in GFR 60-89 3 Moderate decrease in GFR 30-59 4 Severe decrease in GFR 15-29 5 Kidney failure <15 (or dialysis) 43 FASTING 44 Desirable <150 Borderline high 150-199 High 200-499 Very High >500 45 Desirable <200 Borderline high 200-239 High >239 46 Low <40 Desirable: 40-60 High: >60 47 Desirable <100 Near Optimal 100-129 Borderline high 130-159 High 160-189 Very High >189 48 Serologic response to B. burgdorferi infection is not detected, but cannot rule out early infection during which low or undetectable antibody levels to B. burgdorferi may be present. If clinically indicated, a new serum specimen should be submitted in 7-14 days. Test Performed by: [place] [address] Faucet Polisher: Du Looney III, M.D. 49 Because ethnic data is not always readily available, this report includes an eGFR for both -Americans and non- Americans. The National Kidney Disease Education Program (NKDEP) does not endorse the use of the MDRD equation for patients that are not between the ages of 18 and 70, are , have extremes of body size, muscle mass, or nutritional status, or are non- or non-. According to the National Kidney Foundation, irrespective of diagnosis, the stage of the disease is based on the level of kidney function: Stage Description GFR(mL/min/1.73 m(2)) 1 Kidney damage with normal or decreased GFR 90 2 Kidney damage with mild decrease in GFR 60-89 3 Moderate decrease in GFR 30-59 4 Severe decrease in GFR 15-29 5 Kidney failure <15 (or dialysis) 50 @Sample frozen by [id number] at 1942 on 12/17/12. 51 Test Performed by: [place] [address] Faucet Polisher: Du Looney III, M.D. 52 -- REFERENCE VALUE -- <20.0 (Negative) Test Performed by: [place] [address] Faucet Polisher: Du Looney III, M.D. 53 Serologic response to B. burgdorferi infection is not detected, but cannot rule out early infection during which low or undetectable antibody levels to B. burgdorferi may be present. If clinically indicated, a new serum specimen should be submitted in 7-14 days. Test Performed by: [place] [address] F[employer] Polisher: Du Looney III, M.D. 54 Because ethnic data is not always readily available, this report includes an eGFR for both -Americans and non- Americans. The National Kidney Disease Education Program (NKDEP) does not endorse the use of the MDRD equation for patients that are not between the ages of 18 and 70, are , have extremes of body size, muscle mass, or nutritional status, or are non- or non-. According to the National Kidney Foundation, irrespective of diagnosis, the stage of the disease is based on the level of kidney function: Stage Description GFR(mL/min/1.73 m(2)) 1 Kidney damage with normal or decreased GFR 90 2 Kidney damage with mild decrease in GFR 60-89 3 Moderate decrease in GFR 30-59 4 Severe decrease in GFR 15-29 5 Kidney failure <15 (or dialysis) 55 FASTING 56 FASTING 57 FASTING 58 FASTING 59 LDL Interpretation: Low Risk Optimal Level: LDL Less than 100 MG/DL Near or Above Optimal: LDL 100-129 MG/DL Borderline High Risk: LDL 130-159 MG/DL High Risk: LDL 160-189 MG/DL Very High Risk: LDL Greater than 189 MG/DL 60 -- REFERENCE VALUE -- 25-HYDROXY D TOTAL (D2+D3) Optimum levels in the normal population are 25-80 Test Performed by: [place] [address] Faucet Polisher: Du Looney III, M.D. 61 CHOLESTEROL INTERPRETATION: Desirable: Less than 200 MG/DL Borderline-High Risk: 200-239 MG/DL High-Risk: 240 MG/DL and over 62 HDL INTERPRETATION: Undesirable: High Risk: Less than 40 MG/DL Desirable: Low Risk: Greater than 60 MG/DL 63 LDL INTERPRETATION: Low Risk Optimal Level: LDL Less than 100 MG/DL Near or Above Optimal: LDL 100-129 MG/DL Borderline High Risk: LDL 130-159 MG/DL High Risk: LDL 160-189 MG/DL Very High Risk: LDL Greater than 189 MG/DL 64 Anion gap measurement may be of limited value in the presence of any alkalosis, especially in a combined acid base disorder. . 65 A metabolite of Naproxen, O-desmethylnaproxen, has been shown to interfere with the Jendrassik-Woolsey method for measuring total bilirubin. Samples from patients who have taken Naproxen have shown spurious elevation in total bilirubin levels. 66 Because ethnic data is not always readily available, this report includes an eGFR for both -Americans and non- Americans. The National Kidney Disease Education Program (NKDEP) does not endorse the use of the MDRD equation for patients that are not between the ages of 18 and 70, are , have extremes of body size, muscle mass, or nutritional status, or are non- or non-. According to the National Kidney Foundation, irrespective of diagnosis, the stage of the disease is based on the level of kidney function: Stage Description GFR(mL/min/1.73 m(2)) 1 Kidney damage with normal or decreased GFR 90 2 Kidney damage with mild decrease in GFR 60-89 3 Moderate decrease in GFR 30-59 4 Severe decrease in GFR 15-29 5 Kidney failure <15 (or dialysis) 67 -- REFERENCE VALUE -- 25-HYDROXY D TOTAL (D2+D3) Optimum levels in the normal population are 25-80 Test Performed by: [facility] Dpt of Lab Med and Pathology [address] [place] [id number] Fauc[employer] Polisher: Du Looney III, M.D. 68 LDL INTERPRETATION: Low Risk Optimal Level: LDL Less than 100 MG/DL Near or Above Optimal: LDL 100-129 MG/DL Borderline High Risk: LDL 130-159 MG/DL High Risk: LDL 160-189 MG/DL Very High Risk: LDL Greater than 189 MG/DL 69 Anion gap measurement may be of limited value in the presence of any alkalosis, especially in a combined acid base disorder. . 70 Because ethnic data is not always readily available, this report includes an eGFR for both -Americans and non- Americans. The National Kidney Disease Education Program (NKDEP) does not endorse the use of the MDRD equation for patients that are not between the ages of 18 and 70, are , have extremes of body size, muscle mass, or nutritional status, or are non- or non-. According to the National Kidney Foundation, irrespective of diagnosis, the stage of the disease is based on the level of kidney function: Stage Description GFR(mL/min/1.73 m(2)) 1 Kidney damage with normal or decreased GFR 90 2 Kidney damage with mild decrease in GFR 60-89 3 Moderate decrease in GFR 30-59 4 Severe decrease in GFR 15-29 5 Kidney failure <15 (or dialysis) 71 Anion gap measurement may be of limited value in the presence of any alkalosis, especially in a combined acid base disorder. . 72 Note change in reference range as of 12/24/07. The change was based on recommendations from the [place] [employer]. 73 Because ethnic data is not always readily available, this report includes an eGFR for both -Americans and non- Americans. The National Kidney Disease Education Program (NKDEP) does not endorse the use of the MDRD equation for patients that are not between the ages of 18 and 70, are , have extremes of body size, muscle mass, or nutritional status, or are non- or non-. According to the National Kidney Foundation, irrespective of diagnosis, the stage of the disease is based on the level of kidney function: Stage Description GFR(mL/min/1.73 m(2)) 1 Kidney damage with normal or decreased GFR 90 2 Kidney damage with mild decrease in GFR 60-89 3 Moderate decrease in GFR 30-59 4 Severe decrease in GFR 15-29 5 Kidney failure <15 (or dialysis) 74 CHOLESTEROL INTERPRETATION: Desirable: Less than 200 MG/DL Borderline-High Risk: 200-239 MG/DL High-Risk: 240 MG/DL and over 75 HDL INTERPRETATION: Undesirable: High Risk: Less than 40 MG/DL Desirable: Low Risk: Greater than 60 MG/DL 76 LDL INTERPRETATION: Low Risk Optimal Level: LDL Less than 100 MG/DL Near or Above Optimal: LDL 100-129 MG/DL Borderline High Risk: LDL 130-159 MG/DL High Risk: LDL 160-189 MG/DL Very High Risk: LDL Greater than 189 MG/DL 77 -- REFERENCE VALUE -- 25-HYDROXY D TOTAL (D2+D3) Optimum levels in the normal population are 25-80 Test Performed by: [facility] Dpt of Lab Med and Pathology [address] [place] [address] Faucet Polisher: Du Looney III, M.D. 78 LDL INTERPRETATION: Low Risk Optimal Level: LDL Less than 100 MG/DL Near or Above Optimal: LDL 100-129 MG/DL Borderline High Risk: LDL 130-159 MG/DL High Risk: LDL 160-189 MG/DL Very High Risk: LDL Greater than 189 MG/DL 79 Interpretation: 10-24 (mild to moderate deficiency) -- REFERENCE VALUE -- 25-HYDROXY D TOTAL (D2+D3) Optimum levels in the normal population are 25-80 Test Performed by: [facility] Dpt of Lab Med and Pathology [address] [place] [address] Faucet Polisher: Du Looney III, M.D. 80 ---- RUN DATE: 06/22/09 [facility] NMI LIVE PAGE 1 RUN TIME: 1501 Specimen Inquiry RUN USER: INTERFACE -- Name: SAMANTHA DIEZ [facility]#: [id number] Status: REG REF Re06/20/09 Age/Sex: 59/F Unit#: [id number] Location: [address] [place] [address]. : 54 -- Specimen: [id number] SOUT Spec Date: 06/20/[address]: Isac muñoz MD Spec Type: SURGICAL P Received: 06/21/09-0800 Copies to: Niraj vasquez MD SPECIMEN 1) BIOPSY MID TRANSVERSE POLYP 2) BIOPSY RECTAL POLYP HISTORY CLINICAL INFORMATION: History of polyps; screening GROSS DESCRIPTION 1) The specimen is received in formalin labelled Samantha Diez, Biopsy Mid Transverse Polyp, and consists of a fragment of hidns-yellow measuring 0.4 x 0.3 x 0.3 cm. Submitted entirely, one cassette labelled 1. 2) The specimen is received in formalin labelled Samantha Diez, Biopsy Rectal Polyp, and consists of one fragment of dark brown tissue measuring 0.4 x 0.3 x 0.3 cm. Submitted entirely, one cassette labelled 2. DIAGNOSIS 1) Mid transverse colon, biopsy: Hyperplastic polyp. 2) Rectum, polyp, biopsy: Hyperplastic polyp. Signed Electronically by: KIKI MAX 06/22/09 1500 -- -- DEPARTMENT OF PATHOLOGY, [address] [place] [address] [facility] Permit #[id number] Emile Aguilar M.D. Director Kiki Max M.D. Building Inspection Engineer Dir joann -- 81 CHOLESTEROL INTERPRETATION: Desirable: Less than 200 MG/DL Borderline-High Risk: 200-239 MG/DL High-Risk: 240 MG/DL and over 82 HDL INTERPRETATION: Undesirable: High Risk: Less than 40 MG/DL Desirable: Low Risk: Greater than 60 MG/DL 83 LDL INTERPRETATION: Low Risk Optimal Level: LDL Less than 100 MG/DL Near or Above Optimal: LDL 100-129 MG/DL Borderline High Risk: LDL 130-159 MG/DL High Risk: LDL 160-189 MG/DL Very High Risk: LDL Greater than 189 MG/DL 84 Anion gap measurement may be of limited value in the presence of any alkalosis, especially in a combined acid base disorder. . 85 Note change in reference range as of 12/24/07. The change was based on recommendations from the [place] [employer]. 86 Please note change in reference range effective 07 . 87 Because ethnic data is not always readily available, this report includes an eGFR for both -Americans and non- Americans. The National Kidney Disease Education Program (NKDEP) does not endorse the use of the MDRD equation for patients that are not between the ages of 18 and 70, are , have extremes of body size, muscle mass, or nutritional status, or are non- or non-. According to the National Kidney Foundation, irrespective of diagnosis, the stage of the disease is based on the level of kidney function: Stage Description GFR(mL/min/1.73 m(2)) 1 Kidney damage with normal or decreased GFR 90 2 Kidney damage with mild decrease in GFR 60-89 3 Moderate decrease in GFR 30-59 4 Severe decrease in GFR 15-29 5 Kidney failure <15 (or dialysis) 88 New Reference Range and Interpretation effective 02/05/2002 TnI (ng/ml) INTERPRETATION Less Than 0.06 ng/mL NOT SUPPORTIVE OF DIAGNOSIS OF SC 0.06 - 0.50 ng/ml INDETERMINATE: SUGGEST SERIAL STUDIES IF CLINICALLY INDICATED. Greater than 0.5 ng/mL CONSISTENT WITH DIAGNOSIS OF SC . 89 Anion gap measurement may be of limited value in the presence of any alkalosis, especially in a combined acid base disorder. . 90 Note change in reference range as of 12/24/07. The change was based on recommendations from the [place] [employer]. 91 Please note change in reference range effective 07 . 92 A metabolite of Naproxen, O-desmethylnaproxen, has been shown to interfere with the Jendrassik-Derik method for measuring total bilirubin. Samples from patients who have taken Naproxen have shown spurious elevation in total bilirubin levels. 93 Because ethnic data is not always readily available, this report includes an eGFR for both -Americans and non- Americans. The National Kidney Disease Education Program (NKDEP) does not endorse the use of the MDRD equation for patients that are not between the ages of 18 and 70, are , have extremes of body size, muscle mass, or nutritional status, or are non- or non-. According to the National Kidney Foundation, irrespective of diagnosis, the stage of the disease is based on the level of kidney function: Stage Description GFR(mL/min/1.73 m(2)) 1 Kidney damage with normal or decreased GFR 90 2 Kidney damage with mild decrease in GFR 60-89 3 Moderate decrease in GFR 30-59 4 Severe decrease in GFR 15-29 5 Kidney failure <15 (or dialysis) 94 Anion gap measurement may be of limited value in the presence of any alkalosis, especially in a combined acid base disorder. . 95 Note change in reference range as of 12/24/07. The change was based on recommendations from the [place] [employer]. 96 Please note change in reference range effective 07 . 97 A metabolite of Naproxen, O-desmethylnaproxen, has been shown to interfere with the Jendrassik-Woolsey method for measuring total bilirubin. Samples from patients who have taken Naproxen have shown spurious elevation in total bilirubin levels. 98 Because ethnic data is not always readily available, this report includes an eGFR for both -Americans and non- Americans. The National Kidney Disease Education Program (NKDEP) does not endorse the use of the MDRD equation for patients that are not between the ages of 18 and 70, are , have extremes of body size, muscle mass, or nutritional status, or are non- or non-. According to the National Kidney Foundation, irrespective of diagnosis, the stage of the disease is based on the level of kidney function: Stage Description GFR(mL/min/1.73 m(2)) 1 Kidney damage with normal or decreased GFR 90 2 Kidney damage with mild decrease in GFR 60-89 3 Moderate decrease in GFR 30-59 4 Severe decrease in GFR 15-29 5 Kidney failure <15 (or dialysis) 99 CHOLESTEROL INTERPRETATION: Desirable: Less than 200 MG/DL Borderline-High Risk: 200-239 MG/DL High-Risk: 240 MG/DL and over 100 HDL INTERPRETATION: Undesirable: High Risk: Less than 40 MG/DL Desirable: Low Risk: Greater than 60 MG/DL 101 LDL INTERPRETATION: Low Risk Optimal Level: LDL Less than 100 MG/DL Near or Above Optimal: LDL 100-129 MG/DL Borderline High Risk: LDL 130-159 MG/DL High Risk: LDL 160-189 MG/DL Very High Risk: LDL Greater than 189 MG/DL 102 -- REFERENCE VALUE -- 25-HYDROXY D TOTAL (D2+D3) Optimum levels in the normal population are 25-80 Test Performed by: [facility] Dpt of Lab Med and Pathology [address] [place] [address] Faucet Polisher: Du Looney III, M.D. Procedures Date Code Description Status 04/13/2018 93772 Electrocardiogram Complete Completed 10/06/2017 [id number] Mammogram Completed 12/15/2015 [id number] Mammogram Completed 02/23/2015 [id number] Bone Mineral Density Test Completed 12/13/2014 [id number] Mammogram Completed 11/08/2014 [id number] Colonoscopy Completed 12/08/2013 [id number] Mammogram Completed 12/07/2012 [id number] Mammogram Completed 12/20/2010 [id number] Mammogram Completed 09/01/2009 18219 ECG Monitor/Report W/O Superimposition Scanning Completed 08/23/2009 [id number] Mammogram Completed 06/20/2009 [id number] Colonoscopy Completed 03/01/2009 40657 ECG Monitor/Report W/O Superimposition Scanning Completed 02/13/2009 07144 Electrocardiogram Complete Completed Encounters Type Date Location Provider Dx Diagnosis Office Visit 04/13/2018 Main Office Niraj Salcedo Z01.818 Encounter for other 1:20p MD Liss preprocedural examination I10 Essential (primary) hypertension M15.0 Primary generalized (osteo)arthritis Office Visit 01/06/2018 12:20p Main Office Niraj Pineda Essential ( primary) MD Liss hypertension E78.2 Mixed hyperlipidemia M15.0 Primary generalized (osteo)arthritis R05 Cough Office Visit 07/03/2017 10:00a Main Office Niraj Salcedo Z00.01 Encounter for MD Liss general adult medical exam w abnormal findings Z12.39 Encounter for oth screening for malignant neoplasm of breast M15.0 Primary generalized (osteo)arthritis I10 Essential (primary) hypertension E78.2 Mixed hyperlipidemia Office Visit 10/24/2016 1:00p Main Office Niraj Atkinson0 Essential ( primary) MD [facility] hypertension R06.83 Snoring Office Visit 04/25/2016 1:00p Main Office Niraj Salcedo Z00.01 Encounter for MD [facility] general adult medical exam w abnormal findings I10 Essential (primary) hypertension Office Visit 08/28/2015 10:00a Main Office Niraj Pineda Essential ( primary) MD [facility] hypertension M15.0 Primary generalized (osteo)arthritis E55.9 Vitamin D deficiency, unspecified Office Visit 02/13/2015 10:00a Main Office Niraj Salcedo Z00.01 Encounter for MD [facility] general adult medical exam w abnormal findings Z13.820 Encounter for screening for osteoporosis I10 Essential (primary) hypertension E78.2 Mixed hyperlipidemia E55.9 Vitamin D deficiency, unspecified M15.0 Primary generalized (osteo)arthritis 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, thoracic region Office Visit 08/10/2014 10:00a Main Office Addy Ordaz, 780.2 Syncope & ANESTHESIA TECHNICIAN-C Collapse 530.81 Esophageal Reflux 780.79 Malaise And Fatigue Other 401.9 Hypertension Unspec 272.2 Hyperlipidemia Mixed 110.1 Dermatophytosis Nail Office Visit 05/20/2014 9:00a Main Office Addy Ordaz, 079.99 Viral Infection ANESTHESIA TECHNICIAN-C Unspec Office Visit 05/18/2014 11:00a Main Office Addy Ordaz, 079.99 Viral Infection ANESTHESIA TECHNICIAN-C Unspec Office Visit 02/14/2014 11:20a Main Office Niraj Salcedo V70.0 Examination MD [facility] Routine [facility] 401.9 Hypertension Unspec 272.2 Hyperlipidemia Mixed 715.16 Osteoarthrosis Localized Prim Lower Leg 268.9 Vitamin D Deficiency Unspec Office Visit 11/09/2013 11:00a Main Office Niraj Salcedo 079.99 Viral Infection MD [facility] Unspec 780.52 Insomnia Unspecified 309.24 Adjustment Disorder With Anxiety Office Visit 08/16/2013 2:20p Main Office Niraj Salcedo 401.9 Hypertension Unspec MD [facility] 272.2 Hyperlipidemia Mixed Office Visit 02/18/2013 2:00p Main Office Niraj Leija, 461.0 Sinusitis Acute Maxillary 785.6 Lymph Nodes Enlargement Office Visit 12/29/2012 2:20p Main Office Niraj Leija 780.79 Malaise And Fatigue Other 719.49 Pain Joint Multiple Sites 719.46 Pain Joint Lower Leg Office Visit 12/17/2012 12:40p Main Office Niraj Leija 719.49 Pain Joint MD Multiple Sites 780.79 Malaise And Fatigue Other 729.1 Myalgia & Myositis Unspec Office Visit 12/01/2012 1:00p Main Office Niraj Leija, 528.9 Oral Soft Tissue MD Diseases Other & Unspec 110.1 Dermatophytosis Nail Office Visit 11/11/2012 10:00a Main Office Niraj Salcedo 401.9 Hypertension Unspec MD [facility] 272.2 Hyperlipidemia Mixed 729.1 Myalgia & Myositis Unspec 530.81 Esophageal Reflux 789.06 Pain Abdominal Epigastric Office Visit 08/06/2012 9:40a Main Office iNraj Salcedo 530.81 Esophageal Reflux MD [facility] 789.06 Pain Abdominal Epigastric 272.2 Hyperlipidemia Mixed 401.9 Hypertension Unspec 278.00 Obesity Unspec 715.16 Osteoarthrosis Localized Prim Lower Leg 780.52 Insomnia Unspecified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
[2018-05-12] MEDS ORDERED: celeCOXIB CAP* 100 MG ONE (07:55)
[2018-05-12] MEDS ORDERED: Famotidine IV* 10 MG/ML 2 ML (20 mg) ONE (07:55)
[2018-05-12] MEDS ORDERED: Dexamethasone IV* 4 MG/ML 1 ML (4 MG) ONE (07:55)
[2018-05-12] MEDS ORDERED: Acetaminophen IV 1GM/100ML * 100 ML ONE (07:55)
[2018-05-12] MEDS ORDERED: Gabapentin CAP(*) 300 MG ONE (07:56)
[2018-05-12] MEDS ORDERED: ceFAZolin 2 GM PREMIX in ORs 2 GM/50 ML BAG IVPB ONE (07:56)
[2018-05-12 08:28] LABS: INR 0.96 (0.77-1.02)
[2018-05-12] MEDS ORDERED: fentaNYL* 50 MCG/ML 2 ML VIAL (100 MCG VIAL) ONE (08:46)
[2018-05-12] MEDS ORDERED: Midazolam* 1 MG/ML 5 ML VIAL (5 MG) ONE (08:46)
[2018-05-12] MEDS ORDERED: Ondansetron INJ* 2 MG/ML VIAL ONE (08:47)
[2018-05-12] MEDS ORDERED: Bupivacaine 0.5% SDV PF* 30ML VIAL ONE (08:47)
[2018-05-12] MEDS ORDERED: Propofol* 10 MG/ML 20 ML BTL ONE (08:47)
[2018-05-12] MEDS ORDERED: KETAMINE HCL* 50 MG/ML 10 ML VIAL ONE (08:48)
[2018-05-12] MEDS ORDERED: ROPIVACAINE 5 MG/ML 30 ML BTL (0.5%) ONE (08:52)
[2018-05-12] MEDS ORDERED: Bupivacaine 0.5%* 50 ML VIAL ONE (09:12)
[2018-05-12] MEDS ORDERED: Scopolamine 1.5 mg* PATCH ONE (09:15)
[2018-05-12] MEDS ORDERED: oxyCODONE/Acetamin 5/325 MG* TAB PO PRN ×2 (11:02→12:35)
[2018-05-12] MEDS ORDERED: DiMENhydriNATE IV* 50 MG/ML VIAL IV PUSH PRN (11:02)
[2018-05-12] MEDS ORDERED: HYDROmorphone INJ1* 1 MG/ML SYRINGE IV PRN (11:02)
[2018-05-12] MEDS ORDERED: fentaNYL* 50 MCG/ML 2 ML VIAL (100 MCG VIAL) IV PRN (11:02)
[2018-05-12] MEDS ORDERED: Naloxone* 0.4 MG/ML 1 ML VIAL IV PRN (11:02)
[2018-05-12] MEDS ORDERED: Ondansetron INJ* 2 MG/ML VIAL IV PRN ×2 (11:02→12:43)
[2018-05-12] MEDS ORDERED: oxyCODONE TAB* 5 MG TAB PO PRN (12:35)
[2018-05-12] MEDS ORDERED: Magnesium Hydroxide LIQ* 30 ML UDC PO PRN (12:35)
[2018-05-12] MEDS ORDERED: diPHENhydraMINE IV* 50 MG/ML 1 ml VIAL (BENADRYL) IV PRN (12:43)
[2018-05-12] MEDS ORDERED: Morphine VIAL* 4 MG/ML VIAL (1 ml vial) IV PRN (12:43)
[2018-05-12] MEDS ORDERED: Cyclobenzaprine TAB* 10 MG PO PRN (12:43)
[2018-05-12] MEDS ORDERED: Polyethylene Glycol 3350* 17 GM PACKET PO PRN (12:43)
[2018-05-12] MEDS ORDERED: diPHENhydraMINE PO* 25 MG PO PRN (12:43)
[2018-05-12] MEDS ORDERED: Bisacodyl SUPP* 10 MG SUPP PR PRN (12:43)
--- NOTE | 2018-05-12 15:46 | PN ---
Progress Note - Progress Note Date of Service: 05/12/18 Note: patient in recovery,pain well controlled; 2+ DP pulse, able to wiggle toes, dressing c/d/i
--- NOTE | 2018-05-12 16:29 | CONSULT ---
Subjective Date of Service: 05/12/18 Interval History: 68 year old Female with PMH of Hypertension, TIA, sleep apnea, who was brought to the hospital for Left knee arthroplasty. Medical consultation has been requested to manage the medical issues. Currently patient reports: Family History: Findings - Coronary artery disease, aneurysm, diabetes Social History: Findings - Lives at home, does not smoke, no alcohol use. Past Medical History: Findings - Hypertension, sleep apnea, TIA Review of Systems - Measurements Intake and Output: Intake and Output Last 24 Hours 05/10/18 05/11/18 05/12/18 05/13/18 06:59 06:59 06:59 06:59 Intake Total 1650 Output Total 1100 Balance 550 Weight 208 lb Intake: IV Fluids 1650 1G TRANSEXAMIC ACID 50 Lr 1600 Output: Sales 1100 - Review of Systems Constitutional Symptoms: Negative: Weakness, Fever HEENT: Negative: Change in Hearing Eyes: Negative: Change in Vision, Eye Pain Thyroid: Negative: Cold Intolerance, Heat Intolerance, Constipation Pulmonary: Negative: Cough, Shortness of Breath Cardiology: Negative: Chest Pain, Shortness of Breath, Palpitations, Edema Gastroenterology: Negative: Abdominal Pain, Heartburn, Change in Bowel Habits Genital - Urinary: Negative: Dysuria, Polyuria, Nocturia Musculoskeletal: Positive: Joint Pain Endocrinology: Negative: Thyroid Problems, Diabetes Mellitus Neurology: Negative: Headache, Change in Vision, Dizziness, Change in Balancing Psychiatry: Positive: Normal Objective Active Medications: Acetaminophen (Tylenol Tab*) 975 mg PO Q8H ANANT Apixaban (Eliquis*) 2.5 mg PO BID ANANT Bisacodyl (Dulcolax Supp*) 10 mg [place] DAILY PRN PRN Reason: constipation Celecoxib (Celebrex Cap*) 200 mg PO ONCE ONE Stop: 05/12/18 06:01 Last Admin: 05/12/18 08:17 Dose: 200 mg Cyclobenzaprine HCl (Flexeril Tab*) 5 mg PO TID PRN PRN Reason: SPASMS Dexamethasone Sodium Phosphate (Decadron Iv*) 8 mg IV SLOW PU ONCE ONE Stop: 05/12/18 06:01 Last Admin: 05/12/18 08:16 Dose: 8 mg Dimenhydrinate (Dramamine Iv*) 25 mg IV PUSH ONCE PRN PRN Reason: NAUSEA/VOMITING Diphenhydramine HCl (Benadryl Iv*) 25 mg IV Q6H PRN PRN Reason: itching Diphenhydramine HCl (Benadryl Po*) 25 mg PO Q6H PRN PRN Reason: INSOMNIA Docusate Sodium (Colace Cap*) 100 mg PO BID ANANT Famotidine (Pepcid Iv*) 20 mg IV ONCE ONE Stop: 05/12/18 06:01 Last Admin: 05/12/18 08:17 Dose: 20 mg Fentanyl Citrate (Fentanyl*) 50 mcg IV Q2M PRN PRN Reason: PAIN - MODERATE Gabapentin (Neurontin Cap(*)) 600 mg PO ONCE ONE Stop: 05/12/18 06:01 Last Admin: 05/12/18 08:16 Dose: 600 mg Hydromorphone HCl (Dilaudid Inj1s*) 0.2 mg IV Q5M PRN PRN Reason: PAIN - SEVERE Acetaminophen (Ofirmev*) 1,000 mg in 100 mls @ 400 mls/hr IVPB ONCE ONE Stop: 05/12/18 06:14 Last Admin: 05/12/18 08:16 Dose: 400 mls/hr Lactated Ringer's (Lactated Ringers 1000 Ml Bag*) 1,000 mls @ 125 mls/hr IV PER RATE [facility] Last Admin: 05/12/18 08:16 Dose: 125 mls/hr Tranexamic Acid 1,000 mg/ (Sodium Chloride) 60 mls @ 120 mls/hr IV ONCE Stop: 05/12/18 23:59 Cefazolin Sodium 1 gm/ Sodium (Chloride) 50 mls @ 200 mls/hr IVPB Q8H [facility] Stop: 05/13/18 05:14 Lactated Ringer's (Lactated Ringers 1000 Ml Bag*) 1,000 mls @ 100 mls/hr IV PER RATE [facility] Lactulose (Lactulose*) 30 ml PO Q6H PRN PRN Reason: constipation Lidocaine/Sodium Bicarbonate (Buffered Lidocaine 0.9% Syrin*) 0.2 ml INTRADERM ONCE ONE Stop: 05/11/18 12:02 Last Admin: 05/12/18 08:05 Dose: 1 admin Magnesium Hydroxide (Milk Of Magnesia Liq*) 30 ml PO BID ANANT Magnesium Hydroxide (Milk Of Magnesia Liq*) 30 ml PO Q6H PRN PRN Reason: constipation Morphine Sulfate (Morphine Vial*) 2 mg IV Q2H PRN PRN Reason: PAIN Naloxone HCl (Narcan*) 0.08 mg IV Q2M PRN PRN Reason: severe induced resp depression Non-Formulary Medication (Quinipril) 10 mg PO QPM ANANT Ondansetron HCl (Zofran Inj*) 4 mg IV ONCE PRN PRN Reason: NAUSEA/VOMITING Ondansetron HCl (Zofran Inj*) 4 mg IV Q6H PRN PRN Reason: nausea Oxycodone HCl (Roxycodone Tab*) 10 mg PO Q4H PRN PRN Reason: moderate to severe pain Oxycodone/Acetaminophen (Percocet 5/325 Tab*) 1 tab PO ONCE PRN PRN Reason: PAIN - MODERATE Oxycodone/Acetaminophen (Percocet 5/325 Tab*) 1 tab PO Q3H PRN PRN Reason: PAIN - MODERATE Polyethylene Glycol/Electrolytes (Miralax*) 17 gm PO DAILY PRN PRN Reason: Constipation Vital Signs - 8 hr 05/12/18 05/12/18 05/12/18 12:30 12:31 12:35 Temperature 97.5 F Pulse Rate 79 77 73 Respiratory Rate Blood Pressure 142/78 132/69 (mmHg) O2 Sat by Pulse 93 94 99 Oximetry 05/12/18 05/12/18 05/12/18 12:40 12:45 12:50 Temperature Pulse Rate 72 69 71 Respiratory 16 18 Rate Blood Pressure 126/57 144/75 137/76 (mmHg) O2 Sat by Pulse 98 100 94 Oximetry 05/12/18 05/12/18 05/12/18 13:00 13:15 13:30 Temperature Pulse Rate 70 64 61 Respiratory 15 11 13 Rate Blood Pressure 138/70 154/80 141/69 (mmHg) O2 Sat by Pulse 99 93 99 Oximetry 05/12/18 05/12/18 05/12/18 13:45 14:00 14:01 Temperature Pulse Rate 63 62 66 Respiratory 10 20 13 Rate Blood Pressure 131/69 152/71 (mmHg) O2 Sat by Pulse 96 91 95 Oximetry 05/12/18 05/12/18 05/12/18 14:15 14:30 14:45 Temperature Pulse Rate 65 69 71 Respiratory 11 15 13 Rate Blood Pressure 133/71 151/79 136/73 (mmHg) O2 Sat by Pulse 94 97 99 Oximetry 05/12/18 05/12/18 05/12/18 15:00 15:01 15:15 Temperature Pulse Rate 73 70 69 Respiratory 15 13 13 Rate Blood Pressure 143/77 146/78 (mmHg) O2 Sat by Pulse 94 93 97 Oximetry 05/12/18 15:30 Temperature Pulse Rate 70 Respiratory 15 Rate Blood Pressure 127/70 (mmHg) O2 Sat by Pulse 96 Oximetry Appearance: She is lying in bed, not in distress. Ears/Nose/Mouth/Throat: Mucous Membranes Moist Neck: No Thyroid Enlargement, Masses Respiratory: Clear to Auscultation Cardiovascular: NL Sounds; No Murmurs; No JVD, RRR Abdominal: NL Sounds; No Tenderness; No Distention Extremities: - - lower extremities warm to touch, DP 2+ bilaterally Neurological: Alert and Oriented x 3 Assessment/Plan - Billing Plan By Medical Problem: 1. Hypertension: continue Quinapril at home dose 2. Sleep Apnea: Resume CPAp at home settings. 3. Hx of TIA; per patient not on any medications for this. VTE PPX: per primary team Diet: regular diet, Code Status: Full Code. Thank you for the consultation.
[2018-05-12] MEDS: Acetaminophen TAB* 325 MG PO SCH ×2 (17:24→21:18)
[2018-05-12] MEDS: Lactated Ringers 1000 ML Bag* 1,000 ML IV SCH (17:36)
[2018-05-12] MEDS: ceFAZolin 1 GM ADVAN(*) 1 GM in NS 0.9% 50 ML* 50 ML IVPB SCH (18:21)
[2018-05-12] MEDS: QUINAPRIL 10 MG PO SCH (19:37)
[2018-05-12] MEDS: Docusate CAP* 100 MG PO SCH (21:17)
[2018-05-12] MEDS: Magnesium Hydroxide LIQ* 30 ML UDC PO SCH (21:17)
[2018-05-12] MEDS: oxyCODONE/Acetamin 5/325 MG* TAB PO PRN (22:26)
--- NOTE | 2018-05-12 23:45 | OP ---
DATE OF OPERATION: 05/12/18 - ROOM #346 DATE OF : 54 SURGEON: Maria Ines Ro MD. LOAN INTERVIEWER MORTGAGE: CORNELIA Gomez. Ms. Mcdonnell did help throughout the procedure with preparation of the leg, wound retraction, manipulation of the knee and wound closure. ANESTHESIOLOGIST: Dr. Chan. ANESTHESIA: Spinal. PRE-OP DIAGNOSIS: Severe end-stage degenerative osteoarthritis of the left knee joint. POST-OP DIAGNOSIS: Severe end-stage degenerative osteoarthritis of the left knee joint. OPERATIVE PROCEDURE: Left total knee arthroplasty. TOURNIQUET TIME: 51 minutes. COMPLICATIONS: None. ESTIMATED BLOOD LOSS: 200 cc. SPECIMENS: Bone and cartilage from the left knee joint sent to Pathology. HARDWARE USED: This is cemented total knee arthroplasty hardware. Two packages of Simplex bone cement. For the femur, a Legion left 6 narrow Oxinium posterior stabilized . For the tibia, a left Indu II size 5 tibial baseplate. For the insert, an 11-mm posterior stabilized articular insert size 5/6. For the patella, a 32-mm 3-peg all-poly patella. BRIEF HISTORY/INDICATIONS: Ms. Diez is a 68-year-old female with years of increasingly severe left knee pain. She has failed conservative treatment with the antiinflammatories, pain medications, intraarticular injections, and physical therapy. Radiographs showed [id number] arthritis. Due to continued pain and decreased quality of life, she elected to undergo left total knee arthroplasty. Informed consent was obtained from the patient. She understood the risks of surgery included, but were not limited to bleeding, infection, damage to nearby structures, continued pain, need for further surgery, intraoperative fracture, nerve palsy, hardware failure or loosening, knee stiffness, loss of motion, stroke, heart attack, blood clot, and . She wished to proceed. INTRAOPERATIVE FINDINGS: Intraoperatively, the patient was noted to have extensive osteophyte formation. She had full-thickness loss of cartilage in all 3 compartments. DESCRIPTION OF PROCEDURE: Ms. Diez was identified in the preanesthesia unit. Her left lower extremity was marked as the correct operative site. Informed consent was signed and placed in the chart. The patient was taken to the operating room and placed under anesthesia without difficulty. A Sales catheter was placed. Tourniquet was placed on the left thigh. Left lower extremity was prepped and draped in the usual sterile fashion. Preop time-out was made to correctly identify the patient side and site. Appropriate perioperative antibiotics were given within 1 hour of incision. Tourniquet was inflated and total tourniquet time for this procedure was 51 minutes. A midline incision was made with a 10 blade and carried down to the extensor mechanism. A new 10 blade was used to make a standard medial parapatellar arthrotomy. Patella was subluxed laterally. Electrocautery was used to subperiosteally elevate the soft tissue off the superomedial tibia to the mid sagittal plane. Knee was flexed up. Anterior horn of the lateral meniscus and ACL were sharply released. A drill was used to enter the distal femur. Intramedullary distal femoral cutting guide was pinned on the distal femur. Oscillating saw was used to make the distal femoral cut. Next, the external rotation guide was pinned on the distal femur. Distal femur was sized to a size 6. Size 6 multi-cutting jig was pinned on the distal femur. Oscillating saw was used to make the appropriate 4 chamfer cuts. The PCL was completely released and the tibia was subluxed anteriorly. Extramedullary tibial cutting guide was pinned on the proximal tibia. Oscillating saw was used to make the proximal tibial cut perpendicular to the mechanical axis of the tibia. The bone was carefully removed. The knee was brought out into full extension. The spacer block had good fit with the knee in full extension. Medial and lateral ligaments were well balanced. The medial osteophytes were removed along the tibia. Flexion and extension gaps were well balanced. The knee was flexed up. A lamina manager generation was placed both medially and laterally. Any remaining meniscus was carefully removed using electrocautery. Curved osteotome was used to remove any posterior osteophytes. Tibial tray and drop marina were placed and once again confirmed a satisfactory tibial cut. A left size 6 narrow femoral trial was impacted onto the distal femur and had excellent fit and stability. The box for the posterior stabilized implant was prepared using a reamer and box cut osteotome. Size 5 tibial trial with an 11- mm insert trial was placed and the knee was taken through a range of motion. The knee had full extension to 130 degrees of flexion with satisfactory patellofemoral tracking. The patella was everted. 9 mm of patellar bone and cartilage was carefully removed using an oscillating saw. Patella was sized to a size 32. Three peg holes were drilled through the size 32 guide. A 32 trial patella was placed and the knee was taken through a range of motion. There was satisfactory patellofemoral tracking. All trials were carefully removed. The tibia was subluxed anteriorly and sized to a size 5. Proximal tibia was prepared using a size 5 keel punch. All bony cut surfaces were copiously irrigated with sterile saline and dried. Final implants were cemented into place starting with the tibia, followed by the femur , and last the patella. An 11-mm insert trial was placed and the knee was brought out into full extension. Tourniquet was turned down at 51 minutes. The knee was copiously irrigated with sterile saline. Electrocautery was used to obtain meticulous hemostasis. Once the cement had fully cured, the insert trial was removed. Any excess cement was removed from around the capsule and hardware. Final insert chosen was an 11-mm posterior stabilized articular insert. This was locked into position on the tibial tray. Stability of the insert was checked and rechecked and noted to be stable. The knee was copiously irrigated with sterile saline. Extensor mechanism was closed using interrupted #1 Vicryls. The rest of the incision was closed in a layered fashion using 0 and 2-0 Vicryls. Skin was closed using running 3-0 nylon suture. Sterile Xeroform, 4x4s, and Webril were used to cover the incision. Irving wrap and cold pack were placed over this. The patient's anesthesia was reversed without difficulty. She was taken to the PACU in stable condition. Intended weightbearing will be weightbearing as tolerated. Intended DVT prophylaxis will be Coumadin with a Lovenox bridge. [id number]/[facility] #: [id number] EVY
[2018-05-13] MEDS: oxyCODONE/Acetamin 5/325 MG* TAB PO PRN ×4 (02:25→22:16)
[2018-05-13] MEDS: ceFAZolin 1 GM ADVAN(*) 1 GM in NS 0.9% 50 ML* 50 ML IVPB SCH ×2 (02:25→10:03)
[2018-05-13] MEDS: Lactated Ringers 1000 ML Bag* 1,000 ML IV SCH (02:31)
[2018-05-13 05:36] LABS: Hematocrit 33 % (35-47); Hemoglobin 11.1 g/dl (12.0-16.0); Mean Platelet Volume 6.7 fL (7.4-10.4); Platelet Count 289 10^3/ul (150-450)
[2018-05-13] MEDS: Acetaminophen TAB* 325 MG PO SCH ×3 (05:47→21:08)
[2018-05-13 05:54] LABS: BUN/Creatinine Ratio 17.6 (8-20); Calcium 7.9 mg/dL (8.6-10.3); EGFR Non-African American 78.5 (>60); Potassium 4.1 mmol/L (3.5-5.0)
--- NOTE | 2018-05-13 08:31 | PN ---
Progress Note - Progress Note Date of Service: 05/13/18 SOAP: Subjective: []Patient was seen and examined at bedside. She feels well aside from dizziness described as feeling "exhausted after driving too long". Denies CP, SOB, nausea. Has no pain in her knee at this time. Objective: []General: Well appearing, NAD LLE: left knee dressing CDI. Thigh is soft, DF/PF intact, sensation intact to light touch distally, DP2+. Calves supple and nontender without erythema, edema or palpable cords Assessment: []POD [address] Ro 05/12/18 Plan: []WBAT PT/OT Eliquis 2.5 mg po BID x 30 days Pain is well controlled, very drowsy and dizzy. Decreased from percocet for primary pain control to tramadol. May alternate 1 tab 325/5 mg percocet if pain not controlled. If still breakthrough pain thereafter and no sedation can give 5 mg oxycodone. Encouarged IS use Vital Signs Temp 98.1 F 05/13/18 07:20 Pulse 73 05/13/18 07:20 Resp 16 05/13/18 08:34 BP 113/67 05/13/18 07:20 Pulse Ox 93 05/13/18 08:00 Intake & Output 05/12/18 05/13/18 05/13/18 18:59 06:59 18:59 Intake Total 2050 830 210 Output Total 1100 1200 Balance 950 -370 210 Weight 208 lb Intake: IV Fluids 0 1G TRANSEXAMIC ACID 50 LR 400 Lr 1600 Oral 830 210 Output: Sales 1100 1200 Other: # Bowel Movements 0 Laboratory Last Values Hgb 11.1 g/dl (12.0-16.0) L 05/13/18 05:29 Hct 33 % (35-47) L 05/13/18 05:29 Plt Count 289 10^3/ul (150-450) 05/13/18 05:29 MPV 6.7 fL (7.4-10.4) L 05/13/18 05:29 INR (Anticoag Therapy) 0.96 (0.77-1.02) 05/12/18 08:14 Sodium 138 mmol/L (135-145) 05/13/18 05:27 Potassium 4.1 mmol/L (3.5-5.0) 05/13/18 05:27 Chloride 105 mmol/L (101-111) 05/13/18 05:27 Carbon Dioxide 29 mmol/L (22-32) 05/13/18 05:27 Anion Gap 4 mmol/L (2-11) 05/13/18 05:27 BUN 13 mg/dL (6-24) 05/13/18 05:27 Creatinine 0.74 mg/dL (0.51-0.95) 05/13/18 05:27 Est GFR ( Amer) 95.0 (>60) 05/13/18 05:27 Est GFR (Non-Af Amer) 78.5 (>60) 05/13/18 05:27 BUN/Creatinine Ratio 17.6 (8-20) 05/13/18 05:27 Glucose 123 mg/dL (70-100) H 05/13/18 05:27 Calcium 7.9 mg/dL (8.6-10.3) L 05/13/18 05:27
[2018-05-13] MEDS: Magnesium Hydroxide LIQ* 30 ML UDC PO SCH ×2 (08:34→21:09)
[2018-05-13] MEDS: Docusate CAP* 100 MG PO SCH ×2 (08:34→21:07)
[2018-05-13] MEDS: Apixaban* 2.5 MG TAB PO SCH ×2 (08:34→21:07)
[2018-05-13] MEDS ORDERED: oxyCODONE TAB* 5 MG TAB PO PRN (09:23)
[2018-05-13] MEDS: traMADol TAB* 50 MG PO SCH ×3 (10:03→22:16)
--- NOTE | 2018-05-13 12:31 | PN ---
Subjective Date of Service: 05/13/18 Interval History: Status post surgery yesterday. Reports that her pain is well controlled. wondering about PT. BP is controlled, used the CPAP last night- no issues overnight Family History: Findings - Coronary artery disease, aneurysm, diabetes Social History: Findings - Lives at home, does not smoke, no alcohol use. Past Medical History: Findings - Hypertension, sleep apnea, TIA Objective Active Medications: Acetaminophen (Tylenol Tab*) 975 mg PO Q8H [facility] Last Admin: 05/13/18 05:47 Dose: Not Given Apixaban (Eliquis*) 2.5 mg PO BID [facility] Last Admin: 05/13/18 08:34 Dose: 2.5 mg Bisacodyl (Dulcolax Supp*) 10 mg [place] DAILY PRN PRN Reason: constipation Cyclobenzaprine HCl (Flexeril Tab*) 5 mg PO TID PRN PRN Reason: SPASMS Last Admin: 05/12/18 19:13 Dose: 5 mg Diphenhydramine HCl (Benadryl Iv*) 25 mg IV Q6H PRN PRN Reason: itching Diphenhydramine HCl (Benadryl Po*) 25 mg PO Q6H PRN PRN Reason: INSOMNIA Last Admin: 05/13/18 08:34 Dose: 25 mg Docusate Sodium (Colace Cap*) 100 mg PO BID [facility] Last Admin: 05/13/18 08:34 Dose: 100 mg Lactated Ringer's (Lactated Ringers 1000 Ml Bag*) 1,000 mls @ 100 mls/hr IV PER RATE [facility] Last Admin: 05/13/18 02:31 Dose: 100 mls/hr Lactulose (Lactulose*) 30 ml PO Q6H PRN PRN Reason: constipation Magnesium Hydroxide (Milk Of Magnesia Liq*) 30 ml PO BID [facility] Last Admin: 05/13/18 08:34 Dose: 30 ml Magnesium Hydroxide (Milk Of Magnesia Liq*) 30 ml PO Q6H PRN PRN Reason: constipation Morphine Sulfate (Morphine Vial*) 2 mg IV Q2H PRN PRN Reason: PAIN Pto: Quinipril 10 Mg 10 mg PO QPM [facility] Last Admin: 05/12/18 19:37 Dose: 10 mg Ondansetron HCl (Zofran Inj*) 4 mg IV Q6H PRN PRN Reason: nausea Oxycodone HCl (Roxycodone Tab*) 5 mg PO Q4H PRN PRN Reason: moderate to severe pain Oxycodone/Acetaminophen (Percocet 5/325 Tab*) 1 tab PO Q4H PRN PRN Reason: PAIN - MODERATE Polyethylene Glycol/Electrolytes (Miralax*) 17 gm PO DAILY PRN PRN Reason: Constipation Tramadol HCl (Ultram*) 50 mg PO Q6H [facility] Last Admin: 05/13/18 10:03 Dose: Not Given Vital Signs - 8 hr 05/13/18 05/13/18 05/13/18 06:18 07:20 08:00 Temperature 98.1 F Pulse Rate 73 Respiratory 20 17 16 Rate Blood Pressure 113/67 (mmHg) O2 Sat by Pulse 93 93 Oximetry 05/13/18 05/13/18 05/13/18 08:29 08:34 11:26 Temperature Pulse Rate Respiratory 18 16 16 Rate Blood Pressure (mmHg) O2 Sat by Pulse Oximetry 05/13/18 11:30 Temperature 97.8 F Pulse Rate 65 Respiratory 17 Rate Blood Pressure 107/51 (mmHg) O2 Sat by Pulse 94 Oximetry Oxygen Devices in Use Now: CPAP Eyes: PERRLA Ears/Nose/Mouth/Throat: Mucous Membranes Moist Respiratory: Clear to Auscultation Cardiovascular: RRR Extremities: No Edema Neurological: Alert and Oriented x 3 Result Diagrams: 05/13/18 05:29 05/13/18 05:27 Assess/Plan/Problems-Billing Plan By Medical Problem: - Patient Problems (1) Hypertension Current Visit: Yes Status: Acute Code(s): I10 - ESSENTIAL (PRIMARY) HYPERTENSION SNOMED Code(s): 29121947 Comment: Controlled, continue quinapril (2) Sleep apnea Current Visit: Yes Status: Acute Code(s): G47.30 - SLEEP APNEA, UNSPECIFIED SNOMED Code(s): 55793411 Comment: CPAP (3) Anemia Current Visit: Yes Status: Acute Code(s): D64.9 - ANEMIA, UNSPECIFIED SNOMED Code(s): 419508836 Comment: acute on chornic anemia with postop slight drop in Hb as expected for this surgery. (4) History of arthroplasty of left knee Current Visit: Yes Status: Acute Code(s): Z96.652 - PRESENCE OF LEFT ARTIFICIAL KNEE JOINT SNOMED Code(s): 367190782 Comment: POD 1. Care per primary Team Status and Disposition: Thank you for involving the hospitalist in the care of Ms. Samantha Diez.
[2018-05-13] MEDS: QUINAPRIL 10 MG PO SCH ×2 (18:05→21:08)
[2018-05-14 00:51] LABS: BUN/Creatinine Ratio 15.3 (8-20); Calcium 8.4 mg/dL (8.6-10.3); EGFR African American 98.1 (>60); Magnesium 2.1 mg/dL (1.9-2.7); Potassium 3.8 mmol/L (3.5-5.0)
[2018-05-14] MEDS: oxyCODONE/Acetamin 5/325 MG* TAB PO PRN ×2 (02:13→06:16)
[2018-05-14] MEDS: traMADol TAB* 50 MG PO SCH ×4 (04:12→21:43)
[2018-05-14] MEDS: Acetaminophen TAB* 325 MG PO SCH ×3 (05:14→21:42)
[2018-05-14 06:29] LABS: Hematocrit 33 % (35-47); Hemoglobin 10.9 g/dl (12.0-16.0); Mean Platelet Volume 7.6 fL (7.4-10.4); Platelet Count 268 10^3/ul (150-450)
[2018-05-14] MEDS: Apixaban* 2.5 MG TAB PO SCH ×2 (09:03→21:43)
[2018-05-14] MEDS: Docusate CAP* 100 MG PO SCH ×3 (09:26→21:43)
[2018-05-14] MEDS: Magnesium Hydroxide LIQ* 30 ML UDC PO SCH ×3 (09:26→21:43)
--- NOTE | 2018-05-14 10:15 | PN ---
Subjective Date of Service: 05/14/18 Interval History: Patient becoming tachycardic and short of breath w/ minimal exertion overnight and during PT today. No chest pain, Family History: Findings - Coronary artery disease, aneurysm, diabetes Social History: Findings - Lives at home, does not smoke, no alcohol use. Past Medical History: Findings - Hypertension, sleep apnea, TIA Objective Active Medications: Acetaminophen (Tylenol Tab*) 975 mg PO Q8H [facility] Last Admin: 05/14/18 05:14 Dose: Not Given Apixaban (Eliquis*) 2.5 mg PO BID [facility] Last Admin: 05/14/18 09:03 Dose: 2.5 mg Bisacodyl (Dulcolax Supp*) 10 mg [place] DAILY PRN PRN Reason: constipation Cyclobenzaprine HCl (Flexeril Tab*) 5 mg PO TID PRN PRN Reason: SPASMS Last Admin: 05/12/18 19:13 Dose: 5 mg Diphenhydramine HCl (Benadryl Iv*) 25 mg IV Q6H PRN PRN Reason: itching Diphenhydramine HCl (Benadryl Po*) 25 mg PO Q6H PRN PRN Reason: INSOMNIA Last Admin: 05/13/18 08:34 Dose: 25 mg Docusate Sodium (Colace Cap*) 100 mg PO BID [facility] Last Admin: 05/14/18 09:26 Dose: Not Given Lactated Ringer's (Lactated Ringers 1000 Ml Bag*) 1,000 mls @ 100 mls/hr IV PER RATE [facility] Last Admin: 05/13/18 02:31 Dose: 100 mls/hr Lactulose (Lactulose*) 30 ml PO Q6H PRN PRN Reason: constipation Magnesium Hydroxide (Milk Of Magnesia Liq*) 30 ml PO BID [facility] Last Admin: 05/14/18 09:26 Dose: Not Given Magnesium Hydroxide (Milk Of Magnesia Liq*) 30 ml PO Q6H PRN PRN Reason: constipation Morphine Sulfate (Morphine Vial*) 2 mg IV Q2H PRN PRN Reason: PAIN Pto: Quinipril 10 Mg 10 mg PO BEDTIME [facility] Last Admin: 05/13/18 21:08 Dose: 10 mg Ondansetron HCl (Zofran Inj*) 4 mg IV Q6H PRN PRN Reason: nausea Last Admin: 05/13/18 18:01 Dose: 4 mg Oxycodone HCl (Roxycodone Tab*) 5 mg PO Q4H PRN PRN Reason: moderate to severe pain Last Admin: 05/13/18 20:00 Dose: 5 mg Oxycodone/Acetaminophen (Percocet 5/325 Tab*) 1 tab PO Q4H PRN PRN Reason: PAIN - MODERATE Last Admin: 05/14/18 06:16 Dose: 1 tab Polyethylene Glycol/Electrolytes (Miralax*) 17 gm PO DAILY PRN PRN Reason: Constipation Tramadol HCl (Ultram*) 50 mg PO Q6H [facility] Last Admin: 05/14/18 04:12 Dose: 50 mg Vital Signs - 8 hr 05/14/18 05/14/18 05/14/18 02:13 03:21 04:12 Temperature 98.7 F Pulse Rate 98 Respiratory 20 18 20 Rate Blood Pressure 162/86 (mmHg) O2 Sat by Pulse 96 Oximetry 05/14/18 05/14/18 05/14/18 06:16 07:32 08:00 Temperature 99.2 F Pulse Rate 91 Respiratory 18 20 20 Rate Blood Pressure 158/74 (mmHg) O2 Sat by Pulse 97 96 Oximetry 05/14/18 05/14/18 05/14/18 09:20 09:25 09:26 Temperature Pulse Rate Respiratory 20 20 Rate Blood Pressure (mmHg) O2 Sat by Pulse 96 Oximetry Oxygen Devices in Use Now: None Appearance: Sitting on bed, not in distress. Eyes: PERRLA Respiratory: Clear to Auscultation Cardiovascular: RRR Extremities: - - Mild Left lower extremity edema Neurological: Alert and Oriented x 3 Result Diagrams: 05/14/18 05:48 05/14/18 00:27 Assess/Plan/Problems-Billing Plan By Medical Problem: - Patient Problems (1) Shortness of breath Current Visit: Yes Status: Acute Code(s): R06.02 - SHORTNESS OF BREATH SNOMED Code(s): 707697271 Comment: SOB with minimal exertion, and tachycardia associated with this. status post left knee surgery. will get a CTA to rule out PE. (2) Hypertension Current Visit: Yes Status: Acute Code(s): I10 - ESSENTIAL (PRIMARY) HYPERTENSION SNOMED Code(s): 75102419 Comment: Controlled, continue quinapril (3) Sleep apnea Current Visit: Yes Status: Acute Code(s): G47.30 - SLEEP APNEA, UNSPECIFIED SNOMED Code(s): 10777114 Comment: CPAP (4) Anemia Current Visit: Yes Status: Acute Code(s): D64.9 - ANEMIA, UNSPECIFIED SNOMED Code(s): 783494754 Comment: acute on chornic anemia with postop slight drop in Hb as expected for this surgery. (5) History of arthroplasty of left knee Current Visit: Yes Status: Acute Code(s): Z96.652 - PRESENCE OF LEFT ARTIFICIAL KNEE JOINT SNOMED Code(s): 574309825 Comment: POD 2. Care per primary Team Status and Disposition: Thank you for involving the hospitalist in the care of Ms. Samantha Diez.
--- NOTE | 2018-05-14 10:50 | PN ---
Progress Note - Progress Note Date of Service: 05/14/18 SOAP: Subjective: [] Patient was seen and examined at beside. Knee pain is well controlled. She feels well at rest but becomes short of breath with exertion. She had an elevated HR overnight and tele monitoring was started. Denies chest pain, feeling of irregular heartbeats, dizziness, nausea. No history of DVT or PE. She has been on eliquis 2.5 mg PO BID for DVT/PE prophylaxis. Denies calf pain. Objective: [] General: Well appearing, NAD, sitting comfortably in chair. LLE: left knee dressing changed, incision CDI. Thigh is soft, DF/PF intact, sensation intact to light touch distally, DP2+. Calves supple and nontender without erythema, edema or palpable cords Assessment: []POD [address] Ro 05/12/18 Plan: []WBAT PT/OT Eliquis 2.5 mg po BID x 30 days Encourage IS use CTA chest ordered to r/o PE Vital Signs Temp 99.2 F 05/14/18 07:32 Pulse 91 05/14/18 07:32 Resp 18 05/14/18 10:14 BP 158/74 05/14/18 07:32 Pulse Ox 96 05/14/18 09:20 Intake & Output 05/13/18 05/14/18 05/14/18 18:59 06:59 18:59 Intake Total 730 1280 Output Total 800 1250 1000 Balance -70 30 -1000 Intake: Oral 730 1280 Output: Urine 800 1250 1000 Other: Estimated Void Large # Bowel Movements 0 # Voids 1 Laboratory Last Values Hgb 10.9 g/dl (12.0-16.0) L 05/14/18 05:48 Hct 33 % (35-47) L 05/14/18 05:48 Plt Count 268 10^3/ul (150-450) 05/14/18 05:48 MPV 7.6 fL (7.4-10.4) 05/14/18 05:48 INR (Anticoag Therapy) 0.96 (0.77-1.02) 05/12/18 08:14 Sodium 134 mmol/L (135-145) L 05/14/18 00:27 Potassium 3.8 mmol/L (3.5-5.0) 05/14/18 00:27 Chloride 101 mmol/L (101-111) 05/14/18 00: Carbon Dioxide 28 mmol/L (22-32) 05/14/18: Anion Gap 5 mmol/L (2-11) 05/14/18: BUN 11 mg/dL (6-24) 05/14/18: Creatinine 0.72 mg/dL (0.51-0.95) 05/14/18: Est GFR ( Amer) 98.1 (>60) 05/14/18: Est GFR (Non-Af Amer) 81.0 (>60) 05/14/18 00: BUN/Creatinine Ratio 15.3 (8-20) 05/14/18: Glucose 133 mg/dL (70-100) H 05/14/18: Calcium 8.4 mg/dL (8.6-10.3) L 05/14/18: Magnesium 2.1 mg/dL (1.9-2.7) 05/14/18:27
[2018-05-14] MEDS ORDERED: Iohexol 350* (CONTRAST) 500 ML MDV IV ONE (11:05)
[2018-05-14] MEDS: QUINAPRIL 10 MG PO SCH (21:43)
[2018-05-15] MEDS: traMADol TAB* 50 MG PO SCH ×4 (04:15→22:55)
[2018-05-15 05:42] LABS: Hematocrit 30 % (35-47); Hemoglobin 10.2 g/dl (12.0-16.0); Mean Platelet Volume 6.9 fL (7.4-10.4); Platelet Count 266 10^3/ul (150-450)
[2018-05-15] MEDS: Acetaminophen TAB* 325 MG PO SCH ×3 (05:51→20:47)
[2018-05-15] MEDS ORDERED: Calcium Carbonate CHEW TAB* 500 MG (TUMS) PO ONE (08:36)
[2018-05-15] MEDS: Apixaban* 2.5 MG TAB PO SCH ×2 (09:44→20:47)
[2018-05-15] MEDS: Docusate CAP* 100 MG PO SCH ×2 (09:45→20:46)
[2018-05-15] MEDS: Magnesium Hydroxide LIQ* 30 ML UDC PO SCH ×2 (09:45→20:46)
--- NOTE | 2018-05-15 11:47 | PN ---
Progress Note - Progress Note Date of Service: 05/15/18 SOAP: Subjective: []Patient seen at bedside. She continues to have monitor for increased HR. She denies feeling ill, dizzy, SOB, CP or palpitations, however she did not do very well with therapy this am, reportedly losing her balance and grabbing on to furniture multiple times. Her HR also was in the 140's, still asymptomatic. Objective: [] Vital Signs Temp 98.5 F 05/15/18 07:26 Pulse 92 05/15/18 07:26 Resp 18 05/15/18 08:00 BP 119/54 05/15/18 07:26 Pulse Ox 98 05/15/18 07:26 Intake & Output 05/14/18 05/15/18 05/15/18 18:59 06:59 18:59 Intake Total 860 120 Output Total 3000 700 Balance -3000 160 120 Weight 208 lb Intake: Oral 860 120 Output: Urine 3000 700 Other: Estimated Void Medium # Bowel Movements 0 # Voids 2 Laboratory Results - last 24 hr 05/15/18 05:20 Hgb 10.2 L Hct 30 L Plt Count 266 MPV 6.9 L Left knee incision benign calf remains NT and soft active DF left ankle sensation and circulation remain intact Assessment: []s/p Left total knee arthroplasty POD #3 post op tachycardia- still being worked up/ evaluated Plan: []Medicine still following/ working up tachycardia- 140's with exertion Still not stable from PT perspective for discharge CTA negative for PE Eliquis 2.5 mg BID for DVT prophylaxis Home when medically stable
[2018-05-15] MEDS ORDERED: Furosemide IV* 10 MG/ML VIAL (40 MG) IV ONE (12:34)
--- NOTE | 2018-05-15 12:37 | PN ---
Subjective Date of Service: 05/15/18 Interval History: Becomes tachycardic with exertion. Currently no chest pain, no palpitatons, no shortness of breath Family History: Findings - Coronary artery disease, aneurysm, diabetes Social History: Findings - Lives at home, does not smoke, no alcohol use. Past Medical History: Findings - Hypertension, sleep apnea, TIA Objective Active Medications: Acetaminophen (Tylenol Tab*) 975 mg PO Q8H [facility] Last Admin: 05/15/18 05:51 Dose: 975 mg Apixaban (Eliquis*) 2.5 mg PO BID [facility] Last Admin: 05/15/18 09:44 Dose: 2.5 mg Bisacodyl (Dulcolax Supp*) 10 mg [place] DAILY PRN PRN Reason: constipation Cyclobenzaprine HCl (Flexeril Tab*) 5 mg PO TID PRN PRN Reason: SPASMS Last Admin: 05/12/18 19:13 Dose: 5 mg Diphenhydramine HCl (Benadryl Iv*) 25 mg IV Q6H PRN PRN Reason: itching Diphenhydramine HCl (Benadryl Po*) 25 mg PO Q6H PRN PRN Reason: INSOMNIA Last Admin: 05/13/18 08:34 Dose: 25 mg Docusate Sodium (Colace Cap*) 100 mg PO BID [facility] Last Admin: 05/15/18 09:45 Dose: Not Given Lactulose (Lactulose*) 30 ml PO Q6H PRN PRN Reason: constipation Last Admin: 05/14/18 21:43 Dose: 30 ml Magnesium Hydroxide (Milk Of Magnesia Liq*) 30 ml PO BID [facility] Last Admin: 05/15/18 09:45 Dose: Not Given Magnesium Hydroxide (Milk Of Magnesia Liq*) 30 ml PO Q6H PRN PRN Reason: constipation Morphine Sulfate (Morphine Vial*) 2 mg IV Q2H PRN PRN Reason: PAIN Pto: Quinipril 10 Mg 10 mg PO BEDTIME [facility] Last Admin: 05/14/18 21:43 Dose: 10 mg Ondansetron HCl (Zofran Inj*) 4 mg IV Q6H PRN PRN Reason: nausea Last Admin: 05/13/18 18:01 Dose: 4 mg Oxycodone HCl (Roxycodone Tab*) 5 mg PO Q4H PRN PRN Reason: moderate to severe pain Last Admin: 05/13/18 20:00 Dose: 5 mg Oxycodone/Acetaminophen (Percocet 5/325 Tab*) 1 tab PO Q4H PRN PRN Reason: PAIN - MODERATE Last Admin: 05/14/18 06:16 Dose: 1 tab Polyethylene Glycol/Electrolytes (Miralax*) 17 gm PO DAILY PRN PRN Reason: Constipation Tramadol HCl (Ultram*) 50 mg PO Q6H [facility] Last Admin: 05/15/18 10:59 Dose: Not Given Vital Signs - 8 hr 05/15/18 05/15/18 07:26 08:00 Temperature 98.5 F Pulse Rate 92 Respiratory 16 18 Rate Blood Pressure 119/54 (mmHg) O2 Sat by Pulse 98 Oximetry Oxygen Devices in Use Now: None Appearance: Lying in bed, not in distress Ears/Nose/Mouth/Throat: Mucous Membranes Moist Respiratory: - - bibasilar crackles. Abdominal: NL Sounds; No Tenderness; No Distention Neurological: Alert and Oriented x 3 Result Diagrams: 05/15/18 05:20 05/14/18 00:27 Assess/Plan/Problems-Billing Plan By Medical Problem: - Patient Problems (1) Shortness of breath Current Visit: Yes Status: Acute Code(s): R06.02 - SHORTNESS OF BREATH SNOMED Code(s): 839155449 Comment: No longer SOB w/ exertion but having tachycardia w/ exertion. PE ruled out. CT did show pleural effusion, will give lasix 40mg IV once (2) Hypertension Current Visit: Yes Status: Acute Code(s): I10 - ESSENTIAL (PRIMARY) HYPERTENSION SNOMED Code(s): 23709495 Comment: Controlled, continue quinapril (3) Sleep apnea Current Visit: Yes Status: Acute Code(s): G47.30 - SLEEP APNEA, UNSPECIFIED SNOMED Code(s): 24384009 Comment: CPAP (4) Anemia Current Visit: Yes Status: Acute Code(s): D64.9 - ANEMIA, UNSPECIFIED SNOMED Code(s): 804363683 Comment: acute on chornic anemia with postop slight drop in Hb as expected for this surgery. (5) History of arthroplasty of left knee Current Visit: Yes Status: Acute Code(s): Z96.652 - PRESENCE OF LEFT ARTIFICIAL KNEE JOINT SNOMED Code(s): 596970036 Comment: POD 2. Care per primary Team Status and Disposition: Thank you for involving the hospitalist in the care of Ms. Samantha Diez.
[2018-05-15] MEDS ORDERED: Nitroglycerin TAB 0.4 MG* 0.4 MG TAB SL ONE (16:38)
--- NOTE | 2018-05-15 16:47 | PN ---
Hospitalist Progress Note Date of Service: 05/15/18 Nurse called because of tachycardia and chest discomfort EKG done, sinus tachycardia with no acute ST-T changes suggestive of acute ischemia will give one time nitroglycerin, check troponin, obtain echocardiogram patient also reports indigestion, will start pepcid will d/w orthopedics regarding transfer to telemetry floor. have paged ortho to discuss the current patient situation
[2018-05-15] MEDS ORDERED: Metoprolol Tartrate TAB* 25 MG PO ONE (18:08)
[2018-05-15] MEDS: Famotidine IV* 10 MG/ML 2 ML (20 mg) IV SCH (20:47)
[2018-05-15] MEDS: QUINAPRIL 10 MG PO SCH (20:54)
[2018-05-15] MEDS ORDERED: Famotidine IV * 20 MG in NS 0.9% 100 ML* 100 ML IVPB SCH (21:00)
[2018-05-16] MEDS: traMADol TAB* 50 MG PO SCH ×4 (05:32→21:04)
[2018-05-16 06:36] LABS: Hematocrit 30 % (35-47); Hemoglobin 10.2 g/dl (12.0-16.0); Mean Platelet Volume 7.2 fL (7.4-10.4); Platelet Count 290 10^3/ul (150-450)
[2018-05-16 06:54] LABS: BUN/Creatinine Ratio 20.8 (8-20); Calcium 8.4 mg/dL (8.6-10.3); EGFR African American 98.1 (>60); Potassium 3.9 mmol/L (3.5-5.0)
[2018-05-16] MEDS: Acetaminophen TAB* 325 MG PO SCH ×3 (10:40→21:01)
[2018-05-16] MEDS: Apixaban* 2.5 MG TAB PO SCH ×2 (10:40→21:02)
[2018-05-16] MEDS: Famotidine IV* 10 MG/ML 2 ML (20 mg) IV SCH ×2 (10:41→21:03)
[2018-05-16] MEDS: Magnesium Hydroxide LIQ* 30 ML UDC PO SCH ×2 (10:41→21:03)
[2018-05-16] MEDS: Docusate CAP* 100 MG PO SCH ×2 (10:41→21:02)
--- NOTE | 2018-05-16 12:48 | PN ---
Progress Note - Progress Note Date of Service: 05/16/18 SOAP: Subjective: Pt is doing well. Chest pain from last night has improved. Pain controlled. Denies F/C, calf pain Objective: PE- 68 y/o WDWN F NAD LLE- dressing changed inc c/d/i, calf soft NT, +DF/PF ankle, NVI Vital Signs Temp Pulse Resp BP Pulse Ox 97.1 F 81 18 105/46 96 05/16/18 03:29 05/16/18 03:29 05/16/18 05:32 05/16/18 03:29 05/16/18 03:29 Laboratory Results - last 24 hr 05/15/18 05/15/18 05/16/18 17:13 22:38 05:55 Hgb 10.2 L Hct 30 L Plt Count 290 MPV 7.2 L Sodium Potassium Chloride Carbon Dioxide Anion Gap BUN Creatinine Est GFR ( Amer) Est GFR (Non-Af Amer) BUN/Creatinine Ratio Glucose Calcium Troponin I 0.00 0.00 05/16/18 05:55 Hgb Hct Plt Count MPV Sodium 137 Potassium 3.9 Chloride 99 L Carbon Dioxide 31 Anion Gap 7 BUN 15 Creatinine 0.72 Est GFR ( Amer) 98.1 Est GFR (Non-Af Amer) 81.0 BUN/Creatinine Ratio 20.8 H Glucose 92 Calcium 8.4 L Troponin I Assessment: []s/p Left total knee arthroplasty POD #4 post op tachycardia- still being worked up/evaluated Plan: []Medicine still following/ working up tachycardia- 140's with exertion Episode of CP yesterday that has resolved, EKG done and troponins neg WBAT cont PT OT CTA negative for PE Eliquis 2.5 mg BID for DVT prophylaxis Home when medically stable
--- NOTE | 2018-05-16 12:49 | PN ---
Subjective Date of Service: 05/16/18 Interval History: had one 5 minute episode of tachycardia this morning, correated with her walking to the bathrom. this morning reports no chest pain, no shortness of breath, no palpitatons Family History: Findings - Coronary artery disease, aneurysm, diabetes Social History: Findings - Lives at home, does not smoke, no alcohol use. Past Medical History: Findings - Hypertension, sleep apnea, TIA Objective Active Medications: Acetaminophen (Tylenol Tab*) 975 mg PO Q8H [facility] Last Admin: 05/16/18 10:40 Dose: 975 mg Apixaban (Eliquis*) 2.5 mg PO BID [facility] Last Admin: 05/16/18 10:40 Dose: 2.5 mg Bisacodyl (Dulcolax Supp*) 10 mg IN DAILY PRN PRN Reason: constipation Cyclobenzaprine HCl (Flexeril Tab*) 5 mg PO TID PRN PRN Reason: SPASMS Last Admin: 05/12/18 19:13 Dose: 5 mg Diphenhydramine HCl (Benadryl Iv*) 25 mg IV Q6H PRN PRN Reason: itching Diphenhydramine HCl (Benadryl Po*) 25 mg PO Q6H PRN PRN Reason: INSOMNIA Last Admin: 05/13/18 08:34 Dose: 25 mg Docusate Sodium (Colace Cap*) 100 mg PO BID [facility] Last Admin: 05/16/18 10:41 Dose: Not Given Famotidine (Pepcid Iv*) 20 mg IV BID [facility] Last Admin: 05/16/18 10:41 Dose: 20 mg Lactulose (Lactulose*) 30 ml PO Q6H PRN PRN Reason: constipation Last Admin: 05/14/18 21:43 Dose: 30 ml Magnesium Hydroxide (Milk Of Magnesia Liq*) 30 ml PO BID [facility] Last Admin: 05/16/18 10:41 Dose: Not Given Magnesium Hydroxide (Milk Of Magnesia Liq*) 30 ml PO Q6H PRN PRN Reason: constipation Morphine Sulfate (Morphine Vial*) 2 mg IV Q2H PRN PRN Reason: PAIN Pto: Quinipril 10 Mg 10 mg PO BEDTIME [facility] Last Admin: 05/15/18 20:54 Dose: 10 mg Ondansetron HCl (Zofran Inj*) 4 mg IV Q6H PRN PRN Reason: nausea Last Admin: 05/13/18 18:01 Dose: 4 mg Oxycodone HCl (Roxycodone Tab*) 5 mg PO Q4H PRN PRN Reason: moderate to severe pain Last Admin: 05/13/18 20:00 Dose: 5 mg Oxycodone/Acetaminophen (Percocet 5/325 Tab*) 1 tab PO Q4H PRN PRN Reason: PAIN - MODERATE Last Admin: 05/14/18 06:16 Dose: 1 tab Polyethylene Glycol/Electrolytes (Miralax*) 17 gm PO DAILY PRN PRN Reason: Constipation Tramadol HCl (Ultram*) 50 mg PO Q6H [facility] Last Admin: 05/16/18 05:32 Dose: 50 mg Vital Signs - 8 hr 05/16/18 05/16/18 05/16/18 03:29 05:32 07:34 Temperature 97.1 F Pulse Rate 81 Respiratory 16 18 16 Rate Blood Pressure 105/46 (mmHg) O2 Sat by Pulse 96 Oximetry Oxygen Devices in Use Now: CPAP Appearance: Lying in bed, Not in distress Eyes: PERRLA Respiratory: Clear to Auscultation Cardiovascular: RRR Neurological: Alert and Oriented x 3 Result Diagrams: 05/16/18 05:55 05/16/18 05:55 Assess/Plan/Problems-Billing Plan By Medical Problem: - Patient Problems (1) Tachycardia Current Visit: Yes Status: Acute Code(s): R00.0 - TACHYCARDIA, UNSPECIFIED SNOMED Code(s): 0113153 Comment: sinus tachycardia, unclear etiology, does not appear clinically dehydrated, negative for PE, reports no pain, there is no fever. (2) Chest pain Current Visit: Yes Status: Acute Code(s): R07.9 - CHEST PAIN, UNSPECIFIED SNOMED Code(s): 35436668 Comment: resolved. trop negative, ekg no acute ST-T changes echo pending. (3) Shortness of breath Current Visit: Yes Status: Acute Code(s): R06.02 - SHORTNESS OF BREATH SNOMED Code(s): 400028253 Comment: Improved. CT ruled out PE, showed pleural effusion 05/15 received one dose 40mg IV lasix. (4) Hypertension Current Visit: Yes Status: Acute Code(s): I10 - ESSENTIAL (PRIMARY) HYPERTENSION SNOMED Code(s): 78304409 Comment: Controlled, continue quinapril (5) Sleep apnea Current Visit: Yes Status: Acute Code(s): G47.30 - SLEEP APNEA, UNSPECIFIED SNOMED Code(s): 78636459 Comment: CPAP (6) Anemia Current Visit: Yes Status: Acute Code(s): D64.9 - ANEMIA, UNSPECIFIED SNOMED Code(s): 848594930 Comment: acute on chornic anemia with postop slight drop in Hb as expected for this surgery. (7) History of arthroplasty of left knee Current Visit: Yes Status: Acute Code(s): Z96.652 - PRESENCE OF LEFT ARTIFICIAL KNEE JOINT SNOMED Code(s): 196519131 Comment: POD 2. Care per primary Team Status and Disposition: Thank you for involving the hospitalist in the care of Ms. Samantha Diez.
[2018-05-16] MEDS: QUINAPRIL 10 MG PO SCH (21:03)
[2018-05-17] MEDS: traMADol TAB* 50 MG PO SCH ×2 (05:27→13:03)
[2018-05-17] MEDS: Acetaminophen TAB* 325 MG PO SCH ×2 (05:32→08:45)
[2018-05-17 07:15] LABS: Hematocrit 29 % (35-47); Hemoglobin 9.6 g/dl (12.0-16.0); Mean Platelet Volume 6.8 fL (7.4-10.4); Platelet Count 334 10^3/ul (150-450)
[2018-05-17] MEDS: Apixaban* 2.5 MG TAB PO SCH (08:44)
[2018-05-17] MEDS: Famotidine IV* 10 MG/ML 2 ML (20 mg) IV SCH (08:44)
[2018-05-17] MEDS: Magnesium Hydroxide LIQ* 30 ML UDC PO SCH (08:45)
[2018-05-17] MEDS: Docusate CAP* 100 MG PO SCH (08:45)
--- NOTE | 2018-05-17 09:52 | PN ---
Subjective Date of Service: 05/17/18 Interval History: No overnight events. Patient had a brief episode of Sinus tach this morning while ambulating. Denied any CP or SOB at that time. States he was hard to exert herself because of her surgery. No N/V. Ambulating. Tolerating PO Family History: Findings - Coronary artery disease, aneurysm, diabetes Social History: Findings - Lives at home, does not smoke, no alcohol use. Past Medical History: Findings - Hypertension, sleep apnea, TIA Objective Active Medications: Acetaminophen (Tylenol Tab*) 975 mg PO Q8H [facility] Last Admin: 05/17/18 08:45 Dose: 975 mg Apixaban (Eliquis*) 2.5 mg PO BID [facility] Last Admin: 05/17/18 08:44 Dose: 2.5 mg Bisacodyl (Dulcolax Supp*) 10 mg ME DAILY PRN PRN Reason: constipation Cyclobenzaprine HCl (Flexeril Tab*) 5 mg PO TID PRN PRN Reason: SPASMS Last Admin: 05/12/18 19:13 Dose: 5 mg Diphenhydramine HCl (Benadryl Iv*) 25 mg IV Q6H PRN PRN Reason: itching Diphenhydramine HCl (Benadryl Po*) 25 mg PO Q6H PRN PRN Reason: INSOMNIA Last Admin: 05/13/18 08:34 Dose: 25 mg Docusate Sodium (Colace Cap*) 100 mg PO BID [facility] Last Admin: 05/17/18 08:45 Dose: Not Given Famotidine (Pepcid Iv*) 20 mg IV BID [facility] Last Admin: 05/17/18 08:44 Dose: 20 mg Lactulose (Lactulose*) 30 ml PO Q6H PRN PRN Reason: constipation Last Admin: 05/14/18 21:43 Dose: 30 ml Magnesium Hydroxide (Milk Of Magnesia Liq*) 30 ml PO BID [facility] Last Admin: 05/17/18 08:45 Dose: Not Given Magnesium Hydroxide (Milk Of Magnesia Liq*) 30 ml PO Q6H PRN PRN Reason: constipation Morphine Sulfate (Morphine Vial*) 2 mg IV Q2H PRN PRN Reason: PAIN Pto: Quinipril 10 Mg 10 mg PO BEDTIME [facility] Last Admin: 05/16/18 21:03 Dose: 10 mg Ondansetron HCl (Zofran Inj*) 4 mg IV Q6H PRN PRN Reason: nausea Last Admin: 05/13/18 18:01 Dose: 4 mg Oxycodone HCl (Roxycodone Tab*) 5 mg PO Q4H PRN PRN Reason: moderate to severe pain Last Admin: 05/13/18 20:00 Dose: 5 mg Oxycodone/Acetaminophen (Percocet 5/325 Tab*) 1 tab PO Q4H PRN PRN Reason: PAIN - MODERATE Last Admin: 05/14/18 06:16 Dose: 1 tab Polyethylene Glycol/Electrolytes (Miralax*) 17 gm PO DAILY PRN PRN Reason: Constipation Tramadol HCl (Ultram*) 50 mg PO Q6H [facility] Last Admin: 05/17/18 05:27 Dose: 50 mg Vital Signs - 8 hr 05/17/18 05/17/18 05/17/18 03:29 05:27 07:21 Temperature 97.3 F 97.9 F Pulse Rate 91 83 Respiratory 16 16 16 Rate Blood Pressure 145/68 130/66 (mmHg) O2 Sat by Pulse 97 95 Oximetry 05/17/18 05/17/18 05/17/18 08:21 08:49 09:23 Temperature Pulse Rate Respiratory 18 18 18 Rate Blood Pressure (mmHg) O2 Sat by Pulse Oximetry Oxygen Devices in Use Now: None Eyes: PERRLA Ears/Nose/Mouth/Throat: Mucous Membranes Moist Respiratory: Symmetrical Chest Expansion and Respiratory Effort, Clear to Auscultation Cardiovascular: NL Sounds; No Murmurs; No JVD, RRR Abdominal: NL Sounds; No Tenderness; No Distention, No Hepatosplenomegaly Extremities: - - trace edema, knee immobilizer and ice pack on LLE +2 DPs b/l Neurological: Alert and Oriented x 3, NL Muscle Strength and Tone Result Diagrams: 05/17/18 06:57 05/16/18 05:55 Assess/Plan/Problems-Billing Plan By Medical Problem: This is a 68 yr old with a PMHx of HTN who was admitted for elected left total knee, hospital course complicated by sinus tachycardia and chest pain - Patient Problems (1) History of arthroplasty of left knee Current Visit: Yes Status: Acute Code(s): Z96.652 - PRESENCE OF LEFT ARTIFICIAL KNEE JOINT SNOMED Code(s): 072817811 Comment: POD 5 - management per Ortho team Per patient she is to be discharge to home once echo results return (2) Anemia Current Visit: Yes Status: Acute Code(s): D64.9 - ANEMIA, UNSPECIFIED SNOMED Code(s): 993723614 Comment: acute on chornic anemia with postop slight drop in Hb as expected for this surgery. (3) Chest pain Current Visit: Yes Status: Acute Code(s): R07.9 - CHEST PAIN, UNSPECIFIED SNOMED Code(s): 67312762 Comment: resolved. trop negative, ekg no acute ST-T changes Echo - Unremarkable (4) Hypertension Current Visit: Yes Status: Acute Code(s): I10 - ESSENTIAL (PRIMARY) HYPERTENSION SNOMED Code(s): 51853818 Comment: Controlled, continue quinapril (5) Sleep apnea Current Visit: Yes Status: Acute Code(s): G47.30 - SLEEP APNEA, UNSPECIFIED SNOMED Code(s): 53314443 Comment: CPAP (6) Tachycardia Current Visit: Yes Status: Acute Code(s): R00.0 - TACHYCARDIA, UNSPECIFIED SNOMED Code(s): 2980189 Comment: sinus tachycardia - work up unrevealing Only small bout this AM while ambulating - suspect related to deconditioning TSH- NL Echo unremarkable Status and Disposition: Anticipate discharge home today per Ortho
[2018-05-17] MEDS ORDERED: Perflutren Lipid Microsphere* 3 ML VIAL ONE (11:34)
--- NOTE | 2018-05-17 12:31 | PN ---
Progress Note - Progress Note Date of Service: 05/17/18 SOAP: Subjective: Pt is doing well.CP has resolved and so has tachycardia. Doing well with PT. Pain controlled, Denies F/C or calf pain Objective: PE- 68 y/o WDWN F NAD LLE- dressing changed, inc c/d/i, calf soft NT, +DF/PF ankle, NVI Vital Signs Temp Pulse Resp BP Pulse Ox 97.9 F 83 18 130/66 95 05/17/18 07:21 05/17/18 07:21 05/17/18 09:23 05/17/18 07:21 05/17/18 07:21 Laboratory Results - last 24 hr 05/16/18 05/17/18 05/17/18 05:55 06:57 06:57 Hgb 9.6 L Hct 29 L Plt Count 334 MPV 6.8 L Sodium 137 Potassium 3.9 Chloride 99 L Carbon Dioxide 31 Anion Gap 7 BUN 15 Creatinine 0.72 Est GFR ( Amer) 98.1 Est GFR (Non-Af Amer) 81.0 BUN/Creatinine Ratio 20.8 H Glucose 92 Calcium 8.4 L TSH Cancelled 1.92 Assessment: []s/p Left total knee arthroplasty POD #5 Plan: []Awaiting echo results WBAT cont PT OT Eliquis 2.5 mg BID for DVT prophylaxis Tramadol for pain Possible DC to home today pending echo results
--- NOTE | 2018-05-17 12:52 | ECHO ---
Patient: LAMAR HICKMAN [facility] Rec#: [id number] : 1950 Date: 05/17/2018 Age: 68y Height: 168 cm / 66.1 in Weight: 94 kg / 207.2 lbs Sex: F BSA: 2.03 Room#: 445 Admit Date#: 05/12/2018 Type: Inpatient Referring: Tamiko Yadav Reading: Jovanny Gomez DO Imaging System Administrator: Virginia Lopez,CINDYCS,RDMS CC: Niraj Leija MD Transthoracic Echocardiogram Indication: SOB BP: 130/66 HR: 80 Rhythm: NSR Findings History: HTN, TIA, ASTER Technical Comments: The study quality is fair. Left Ventricle: The left ventricular chamber size is normal. Mild concentric left ventricular hypertrophy is observed. There is a prominent septal knuckle. Global left ventricular wall motion and contractility are within normal limits. There is normal left ventricular systolic function. The estimated ejection fraction is 60-65%. There is no consistent Doppler evidence of clinically significant diastolic dysfunction. Left Atrium: The left atrial chamber size is normal. Right Ventricle: The right ventricular chamber size and systolic function are within normal limits. Right Atrium: The right atrium is not well visualized. Aortic Valve: The aortic valve is trileaflet. Systolic excursion of the aortic valve is normal. There is no evidence of aortic regurgitation. There is no evidence of aortic stenosis. Mitral Valve: The mitral valve leaflets do not appear thickened. There is no evidence of mitral regurgitation. There is no evidence of mitral stenosis. Tricuspid Valve: The tricuspid valve leaflets are normal. There is trace tricuspid regurgitation. No pulmonary hypertension is noted. There is no tricuspid stenosis. Pulmonic Valve: The pulmonic valve structure is not well visualized. There is no evidence of pulmonic regurgitation. Pericardium: There is no significant pericardial effusion. Aorta: The ascending aorta is not well visualized. The aortic root is normal in size. Pulmonary Artery: The main pulmonary artery is not well visualized. Venous: The inferior vena cava appears normal in size. There is an approximate 50% respiratory change in the inferior vena cava dimension. Contrast: Definity was used to optimize study. A total of 2 ml was used Conclusions The left ventricular chamber size is normal. Mild concentric left ventricular hypertrophy is observed. Global left ventricular wall motion and contractility are within normal limits. There is normal left ventricular systolic function. The estimated ejection fraction is 60-65%. The left atrial chamber size is normal. The right ventricular chamber size and systolic function are within normal limits. No significant valvular abnormalities noted Definity was used to optimize study. None prior for comparison at time of interpretation Measurements Name Value Normal Range RVIDd (AP) 2D 2.8 cm (0.9 - 2.6) RVDdMajor (2D) 2.4 cm (2.2 - 4.4) IVSd (2D) 1.4 cm (0.6 - 1) LVPWd (2D) 1.1 cm (0.6 - 1) LVIDd (2D) 4.5 cm (3.6 - 5.4) LVIDs (2D) 2.7 cm - LV FS (2D) 40 % (25 - 45) Aortic Annulus 2 cm (1.4 - 2.6) Ao root diameter (2D) 3.1 cm (2.1 - 3.5) Aortic arch 3 cm (1.8 - 3.4) LA dimension (AP) 2D 3.9 cm (2.3 - 3.8) LAd ISD 4CH 4.4 cm (2.9 - 5.3) LA ISD 4CH W 3.3 cm (2.5 - 4.5) Name Value Normal Range LA ESV BP (A/L) index 14 ml/m2 - Name Value Normal Range MV E-wave Vmax 0.8 m/sec - MV deceleration time 164 msec - MV A-wave Vmax 1 m/sec - MV E:A ratio 0.8 ratio - LV septal e' Vmax 0.08 m/sec - LV lateral e' Vmax 0.09 m/sec - LV E:e' septal ratio 10 ratio - LV E:e' lateral ratio 9 ratio - Name Value Normal Range AV Vmax 1.5 m/sec - AV VTI 26 cm - AV peak gradient 9 mmHg - AV mean gradient 4 mmHg - LVOT Vmax 1.1 m/sec - LVOT VTI 21 cm - LVOT peak gradient 5 mmHg - LVOT mean gradient 2 mmHg - MARITZA Vmax 0.6 m/sec - Name Value Normal Range TR Vmax 2.5 m/sec - TR peak gradient 25 mmHg - RAP 3 mmHg - RVSP 28 mmHg - IVC diameter 1.9 cm - Name Value Normal Range PV Vmax 0.8 m/sec - PV peak gradient 2.6 mmHg -
[2018-05-17 13:35] VITALS: BP 141/67
[2018-05-18] MEDS ORDERED: Famotidine TAB* 20 MG PO SCH (09:00)
--- NOTE | 2018-05-22 01:18 | DS ---
DISCHARGE SUMMARY: DATE OF SURGERY: 05/12/18 DATE OF ADMISSION: 05/12/18 DATE OF DISCHARGE: 05/17/18 PROVIDER: Maria Ines Ro MD *(DICTATED BY CORNELIA BORDEN) ADMITTING DIAGNOSIS: Status post left total knee arthroplasty for treatment of severe left knee osteoarthritis. SECONDARY DIAGNOSES: 1. Hypertension. 2. Transient ischemic attack. 3. Obstructive sleep apnea. CONSULTATIONS: PT/OT, Medicine. HISTORY OF PRESENT ILLNESS: Ms. Diez is a 68-year-old female who presented to the clinic for left knee pain due to end-stage osteoarthritis. She has failed conservative measures and therefore agreed to undergo a left total knee arthroplasty with Dr. Ro on 05/12/18. HOSPITAL COURSE: The patient was admitted to [facility] on . She underwent a left total knee arthroplasty. Postoperatively, she recovered on the short-stay surgical unit. Postop day 1, the Sales was removed and her pain was controlled with p.o. with Percocet and she was restarted on home medications. Labs and vitals remained stable. She was able to weight bear as tolerated on the left lower extremity. She advanced appropriately with physical therapy and occupational therapy. DVT prophylaxis was managed with Eliquis. She had some tachycardia post-operatively. Her CTA was negative for a pulmonary embolism, and she had an episode of chest pain with mild ischemic changes on EKG. An echo was done and was found to be negative. By postop day 5 , she was orthopedically and medically stable for discharge to home with outpatient physical therapy. PHYSICAL EXAMINATION: General: A 68-year-old well-developed, well-nourished female, in no acute distress. Alert and oriented x3. Appropriate mood and affect. Left lower extremity: Incision clean, dry, and intact. Well-healing surgical incision with no signs of infection. Calves soft and nontender. Able to plantarflex and dorsiflex. +2 DP pulse. Sensation is intact to light touch distally. DISCHARGE CONDITION: Stable. DISCHARGE MEDICATIONS: Home medications continued on discharge to include: 1. Quinapril 10 mg 1 by mouth at night. 2. Ibuprofen 400 mg 1 by mouth every 6 hours. New medications on discharge include: 1. Eliquis 2.5 mg 1 by mouth twice a day for DVT prophylaxis. 2. Colace 100 mg 1 by mouth twice a day. 3. Tramadol 50 mg 1 by mouth every 4 to 6 hours as needed for pain with an MDD of 8. DISCHARGE INSTRUCTIONS: The patient is weightbearing as tolerated on the left lower extremity and should continue physical therapy and occupational therapy exercises as shown. Okay to shower postop day 3. No bathing, swimming, or submerging the wound. Use gentle soap, pat dry, cover with gauze, Irving wrap, and tape. Daily dressing changes. Call the orthopedic office with increased drainage, redness, increased pain, or fever. Go to the ER with shortness of breath or chest pain. Regular diet. Increase fluids and fibers to prevent constipation. Continue to use stool softeners and call if no bowel movement within 48 hours. DVT prophylaxis with Eliquis 2.5 every 12 hours x30 days. Postop pain control with tramadol 50 mg 1 to 2 tabs every 4 to 6 hours with an MDD of 8. She can also take [id number] Tylenol to help with discomfort. Antibiotics will be required for any dental work in the future. She will follow up with Dr. Ro in 10 to 14 days. She should call the office with any questions or concerns. CORNELIA BORDEN [id number]/[id number]/PHAM #: [id number] [email or web address]
== END 2018-05-17 15:30 | disposition home or self-care (01) | DRG 302 ==
LOC: AA 07:21 → SSU 17:04 → MEDTELE 05-15 18:11
PROVIDERS: ADMIT Orthopaedic Surgery Adult Reconstructive Orthopaedic Surgery; ATTEND Orthopaedic Surgery Adult Reconstructive Orthopaedic Surgery
PROC: 0SRD069 Replacement of Left Knee Joint with Oxidized Zirconium on Polyethylene Synthetic Substitute, Cemented, Open Approach (ICD-10-PCS; principal; 2018-05-12 10:00)
DX: M17.12 Unilateral primary osteoarthritis, left knee (principal); I10 Essential (primary) hypertension; G47.30 Sleep apnea, unspecified; D64.9 Anemia, unspecified; M25.762 Osteophyte, left knee; R07.9 Chest pain, unspecified; R00.0 Tachycardia, unspecified; Z86.73 Personal history of transient ischemic attack (TIA), and cerebral infarction without residual deficits; Z79.899 Other long term (current) drug therapy; Z88.8 Allergy status to other drugs, medicaments and biological substances; Z82.49 Family history of ischemic heart disease and other diseases of the circulatory system; Z83.3 Family history of diabetes mellitus
CPT/HCPCS: 36415; 71275; 80048; 83735; 84443; 84484; 85014; 85018; 85049; 85610; 88305; 88311; 93005; 93306; A9270-GY; C1776; C8929; G8978-GP-CI; G8978-GP-CJ; G8979-GP-CH; G8979-GP-CI; G8980-GP-CI; G8987-GO-CJ; G8988-GO-CJ; G8989-GO-CJ; J0690; J1100; J1940; J2250; J2405; J2704; J2795; J3010; Q9967

== ENCOUNTER 2019-08-10 17:11 | Emergency (ER) | payer BC, MEDICARE ==
[2019-08-10 17:36] VITALS: BP 152/106
--- NOTE | 2019-08-10 18:22 | UC ---
Skin Complaint HPI - HPI Summary HPI Summary: The patient is a 69-year-old female that presents here for evaluation of a tick bite. She removed the tick. She is unsure how long it was attached. She has had Lyme disease in the past and is concerned about getting it again. She denies any complaints currently. - History of Current Complaint Chief Complaint: UCSkin Time Seen by Provider: 08/10/19 17:29 Stated Complaint: TICK BITE Hx Obtained From: Patient Timing: Constant Onset Severity: Mild Current Severity: None Pain Intensity: 0 Pain Scale Used: 0-10 Numeric Location: Discrete Character: Redness Aggravating Factor(s): Nothing Alleviating Factor(s): Nothing Associated Signs & Symptoms: Positive: Negative Related History: Insect Bite/Sting - Allergy/Home Medications Allergies/Adverse Reactions: Allergies Allergy/AdvReac Type Severity Reaction Status Date / Time fentanyl Allergy GI Upset Verified 08/10/19 17:31 Home Medications: Home Medications Quinipril 10 mg PO QPM 04/30/18 [History Confirmed 08/10/19] DOXYcycline CAP(*) [DOXYcycline 100MG CAP(*)] 200 mg PO ONCE #2 cap 08/10/19 [Rx ] Ibuprofen 400 mg PO ONCE PRN 08/10/19 [History Confirmed 08/10/19] PMH/Surg Hx/FS Hx/Imm Hx Previously Healthy: Yes Cardiovascular History: Hypertension - Surgical History Surgical History: Yes Surgery Procedure, Year, and Place: carpal tunnel [facility], 2007. dental implants, 2018. cataract removal x2 2006, [facility]. left knee 2019 - Family History Known Family History: Positive: Hypertension - Social History Alcohol Use: None Substance Use Type: None Smoking Status (MU): Never Smoked Tobacco - Immunization History Most Recent Influenza Vaccination: 2018 Most Recent Pneumonia Vaccination: 2016 Review of Systems All Other Systems Reviewed And Are Negative: Yes Constitutional: Positive: Negative Skin: Positive: Negative Eyes: Positive: Negative ENT: Positive: Negative Respiratory: Positive: Negative Cardiovascular: Positive: Negative Gastrointestinal: Positive: Negative Genitourinary: Positive: Negative Motor: Positive: Negative Neurovascular: Positive: Negative Musculoskeletal: Positive: Negative Neurological/Mental Status: Positive: Negative Physical Exam Triage Information Reviewed: Yes Appearance: Well-Appearing, No Pain Distress, Well-Nourished Vital Signs: Initial Vital Signs Temp 98.8 F 08/10/19 17:29 Pulse 111 08/10/19 17:29 Resp 18 08/10/19 17:29 BP 152/106 08/10/19 17:29 Pulse Ox 98 08/10/19 17:29 Vital Signs Reviewed: Yes Eyes: Positive: Conjunctiva Clear ENT: Positive: Hearing grossly normal. Negative: Nasal congestion, Nasal drainage, Trismus, Muffled voice, Hoarse voice Dental Exam: Normal Neck: Positive: Supple Respiratory: Positive: No respiratory distress, No accessory muscle use Musculoskeletal: Positive: No Edema Neurological: Positive: Alert Psychological Exam: Normal Skin Exam: Other - single mandible still present/slight erthema around bite site Images Front/Back of Body, Lg (Rosebud): 1 - bite site Course/Dx - Diagnoses Provider Diagnosis: Tick bite of chest wall, Risk of exposure to Lyme disease Discharge ED - Sign-Out/Discharge Documenting (check all that apply): Patient Departure All imaging exams completed and their final reports reviewed: No Studies - Discharge Plan Condition: Stable Disposition: HOME Prescriptions: DOXYcycline CAP(*) [DOXYcycline 100MG CAP(*)] 200 mg PO ONCE #2 cap Patient Education Materials: Tick Bite (ED) Referrals: Niraj Leija MD [Primary Care Provider] - 2 Weeks (recheck BP in 2-12 weeks) - Billing Disposition and Condition Condition: STABLE Disposition: Home
== END 2019-08-10 18:05 | disposition home or self-care (01) ==
LOC: UCEAST 17:11
DX: S20.361A Insect bite (nonvenomous) of right front wall of thorax, initial encounter (principal); W57.XXXA Bitten or stung by nonvenomous insect and other nonvenomous arthropods, initial encounter; Y92.9 Unspecified place or not applicable; I10 Essential (primary) hypertension; Z79.899 Other long term (current) drug therapy; Z88.5 Allergy status to narcotic agent
CPT/HCPCS: 99212; G0463